=== PATIENT | male | born 1980 | race Caucasian/White ===

== ENCOUNTER 2022-10-11 12:37 | Emergency (ER) | payer OTHER, SELFPAY ==
[2022-10-11 12:44] VITALS: BP 149/68; PULSE 80; RESP 20; TEMP 36.8; O2SAT 98; BMI 46.5
--- NOTE | 2022-10-11 12:45 | ED_ITS ---
HPI - General Adult General Chief complaint: Abdominal Pain Stated complaint: lump in abd area Related Data Allergies Allergy/AdvReac Type Severity Reaction Status Date / Time No Known Allergies Allergy Verified 10/11/22 12:47 [facility] Social History Social History Advance Directives: No Advance Directives Information Provided: No Physical Exam ED Vital Signs: BMI result Body Mass Index 46.5 Course Course Course Narrative: This is an RME: Additional HPI, ROS, PE not included below will be deferred to primary provider. This is a [id number] presenting to the emergency department with complaints of ?hernia. He states that he has noticed a lump in his abdomen that increased in size last night when he was sitting up. No fevers, chills, nausea, vomiting, diarrhea. Able to eat and drink without difficulty. Hx of ap pendectomy, no other abd surgeries. Plan: further ER eval by primary provider. Reevaluation(s) Reevaluation #1: pt eloped prior to being fully evaluated in the main ER. Discharge Plan Discharge Clinical Impression: Abdominal lump Patient Disposition: Elopement Interventions: ED Discharge Assessment Last Done: 10/11/22 17:37 Discharge Date/Time: 10/11/22 17:37
== END 2022-10-11 17:37 | disposition left against medical advice (07) ==
PROVIDERS: Emergency Provider Emergency Medicine
DX: R19.00 Intra-abdominal and pelvic swelling, mass and lump, unspecified site (principal)
CPT/HCPCS: 99282

== ENCOUNTER 2023-08-07 10:22 | Outpatient (AMB) | payer OTHER, SELFPAY ==
--- NOTE | 2023-08-07 11:14 | A.OFFPC_ITS ---
Vital Signs 08/07/23 11:22 08/07/23 11:24 Height 5 ft 7.72 in Weight 303 lb 8 oz BMI 46.5 BP 159/83 H 136/78 Blood Pressure Location Lt brachial Lt radial Position Sitting Sitting Respiration 14 Pulse 85 Pulse Source Pulse Oximeter Temp 98.4 F Temp Source Temporal Artery Scan Pulse Oximetry (%) 97 Oxygen Delivery Method Room Air Intake Visit Reasons: Establish Care / ED-FU Intake Note: New patient visit Pouncing Machine Operator Required: No Allergies No Known Allergies Allergy (Verified 08/07/23 11:15) Tobacco use date assessed: 08/07/23 Dental Screening Dental Screen Date: 08/07/23 Did you have a dental visit in the last 12 months?: No Did you have a dental problem in the last 6 months where you did not have access to dental care?: No Was dental information given to patient?: Patient declined HPI Establish Care / ED-FU HPI Details Pt is a 42 y/o male who presents today to establish care. He does report obstructive sleep apnea and is on CPAP followed by sleep medicine. 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 She wanted him to be referred to Gastroenterology for his personal history of colon polyps and she wanted him to see a general surgeon for his rectus diastasis. He wants his testosterone checked. He went to [facility] ED 2.5 weeks for SOB and dizziness. He states he went there and was dx with a panic attack. He states that he started feeling like he could not take a good breath and got lightheaded and panicky when he was about to have a difficult conversation with his family members. He states that it caused a lot of stress for him and he thought than that he could be dying so he went to the ER and they did labs, an EKG, chest x-ray any states that they told him everything was fine but his liver function tests were a little bit elevated. He states that since the ER he has not made any significant diet changes but knows that he needs to make lifestyle changes because he is severely obese. 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 He has 2 children the ages 7 and 4 and often eats fast food with them. He states that he can follow a diet but has to be told to do this. CV: Blood pressure today in the office is 136/78. He denies any chest pain or shortness a breath. His initial blood pressure today upon arriving was 159/83. He states in the ER he thinks it was normal. Psych: States that he has recently felt a bit more stressed, anxious in some mild depression symptoms. He states some of it is related to his lifestyle and that he wants to change but he does not know that he wants to go on medication yet. Denies any SI/HI. States that his mother is on antianxiety medication and it does seem to make a difference for her. Family history: Maternal grandfather had colon cancer in his 80s. Mother had breast ca 59 y/o. Had a colonoscopy in 2014 and states that he had polyps and believes precancerous. 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 [facility] Medical History (Updated 08/07/23 @ 14:40 by Pao Mcfarlane PA-C) Anxiety with depression Colon polyps Elevated blood pressure reading in office with diagnosis of hypertension DWAYNE on CPAP Rectus diastasis GERD (gastroesophageal reflux disease) Surgical History (Updated 08/07/23 @ 11:22 by Jazzmine Clay CMA) Hx of appendectomy Family History (Updated 08/07/23 @ 11:21 by Jazzmine Clay CMA) Mother Breast cancer Maternal Grandmother Colon cancer Other Substance abuse Social History (Updated 08/07/23 @ 11:18 by Jazzmine Clay CMA) Housing: House Patient Tobacco Use Status: Current everyday Tobacco user Cigarette Packs Per Day: 5 Years Smoked: 5 e-Cigarette/Vaping Use: Never Used Substance Use Type: Amphetamines, Crack/Cocaine and Former Substance User service: No Current occupational status: employed 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 Current occupational exposures/hazards: No Cognitive needs: No Hearing needs: No Vision needs: No Questionnaire PHQ-9 Over the last 2 weeks, how often have you been bothered by any of the following problems? 1. Little interest or pleasure in doing things: more than half the days 2. Feeling down, depressed, or hopeless: several days 3. Trouble falling or staying asleep, or sleeping too much: more than half the days 4. Feeling tired or having little energy: nearly every day 5. Poor appetite or overeating: more than half the days 6. Feeling bad about yourself - or that you are a failure or have let yourself or your family down: more than half the days 7. Trouble concentrating on things, such as reading the newspaper or watching television: not at all 8. Moving or speaking so slowly that other people could have noticed. Or the opposite - being so fidgety or restless that you have been moving around a lot more than usual: several days 9. Thoughts that you would be better off or of hurting yourself in some wa y: not at all Total score: 13 Depression Screening Interpretation: Positive Depression Screening Done: Yes 48350 - PHQ-9 Billing: Yes Source: Developed by Drs. Marco Courtney, Rosemary Hughes, Lior Antonio and colleagues, with an educational ellen from [employer]. Thrive Questionnaire Date Thrive assessed: 08/07/23 I am a: Patient What is your living situation today?: I have a steady place to live Within the past 12 months, did the food you bought not last and you didn't have the money to get more?: Never true Within the past 12 months, did you worry whether your food would run out before you got money to buy more?: Never true Do you have trouble paying for medicines?: No Do you have trouble getting transportation to medical appointments?: No Do you have trouble paying your heating and electricity bill?: No Do you have trouble taking care of your child, family member or friend?: No Do you have trouble with day-to-day activities such as bathing, preparing meals, shopping, managing finances, etc.?: No Are you currently unemployed and looking for a job?: No Are you interested in more education?: No Please select the resources that you would like help with: None Currently or been in a relationship where the following occur: no concerns reported THRIVE Score: 0 AUDIT C Alcohol Use Questionnaire (AUDIT-C) 1. How often do you have a drink containing alcohol?: Never 3. How often do you have six or more drinks on one occasion?: Never Total Score: 0 LUCY-7 AMB Questionnaire LUCY-7 Date LUCY - 7 assessed: 08/07/23 Feeling nervous, anxious, or on edge: 1 = Several days Not being able to stop or control worryin = Not at all Worrying too much about different things: 0 = Not at all Trouble relaxin = Several days Being so restless that it is hard to sit still: 1 = Several days Becoming easily annoyed or irritable: 1 = Several days Feeling afraid as if something awful might happen: 1 = Several days Total LUCY-7 score (0-4 normal; 5-9 mild; 10-14 moderate; 15-21 severe): 5 Source: Developed by Drs. Marco Courtney, Rosemary Hughes, Lior Antonio and colleagues, with an educational ellen from [employer]. LUCY-7 Assessment Billing LUCY-7 Assessment Tool: LUCY-7 Assessment 91408 Physical exam (Primary Care) Vital Signs: Last Vital Signs Temp 98.4 F 08/07/23 11:22 Pulse 85 08/07/23 11:22 Resp 14 08/07/23 11:22 BP 136/78 08/07/23 11:24 Pulse Ox 97 08/07/23 11:22 Oxygen Delivery Method Room Air 08/07/23 11:22 BMI result Body Mass Index 46.5 Tobacco/Smoking Status: Tobacco use Status Tobacco use date assessed 08/07/23 08/07/23 11:27 Patient Tobacco Use Status Current everyday Tobacco 08/07/23 11:27 e-Cigarette/Vaping Use Never Used 08/07/23 11:27 PHQ-9: PHQ-9 Score PHQ-9: Total score 13 08/07/23 11:27 Depression Screening Interpretation: Positive Thrive Assessment: Date of Thrive Assessment Date Thrive assessed 08/07/23 08/07/23 11:27 Currently or been in a relationship where the following occur: no concerns reported Const Orientation/consciousness: patient oriented x3 HENMT Ears: hearing grossly normal bilaterally Neck Thyroid: Thyroid normal Lymphatic: no lymphadenopathy noted Resp Auscultation: clear to auscultation bilaterally Cardio Rate: regular rate Rhythm: regular rhythm Heart sounds: S1 normal heart sound present and S2 normal heart sound present GI Other: Rectus diastasis noted Inspection: Yes normal to inspection Palpation (GI): Soft to palpation and Other GI palpation findings present (nontender, no cva tenderness) Auscultation: normoactive bowel sounds Skin General skin exam: no rashes or lesions noted Neuro General: patient oriented x3, gait normal and no focal motor deficits Assessment and Plan Assessment & Plan (1) Rectus diastasis: Code(s): M62.08 - Separation of muscle (nontraumatic), other site Plan: Referral to General surgery (2) DWAYNE on CPAP: Code(s): G47.33 - Obstructive sleep apnea (adult) (pediatric) Plan: Continue management with sleep Medicine (3) Elevated LFTs: Code(s): R79.89 - Other specified abnormal findings of blood chemistry Plan: We will check labs today. (4) Elevated blood pressure reading in office with diagnosis of hypertension: Code(s): I10 - Essential (primary) hypertension Plan: We will return in 1 month for blood pressure recheck (5) Colon polyps: Code(s): K63.5 - Polyp of colon Plan: Referral to GI. (6) Anxiety with depression: Code(s): F41.8 - Other specified anxiety disorders Plan: wants to wait on treatment. no si/hi. will try increasing exercise and healthier habits and reassess at next visit. Orders: Orders Complete Blood Count Auto Diff Today G47.33 - Obstructive sleep apnea (adult) (pediatric), I10 - Essential (primary) hypertension, K63.5 - Polyp of colon, M62.08 - Separation of muscle (nontraumatic), other site, R79.89 - Other specified abnormal findings of blood chemistry TSH reflex Free T4 Today G47.33 - Obstructive sleep apnea (adult) (pediatric), I10 - Essential (primary) hypertension, K63.5 - Polyp of colon, M62.08 - Separation of muscle (nontraumatic), other site, R79.89 - Other specified abnormal findings of blood chemistry Comprehensive [place]. Panel Fast Today G47.33 - Obstructive sleep apnea (adult) (pediatric), I10 - Essential (primary) hypertension, K63.5 - Polyp of colon, M62.08 - Separation of muscle (nontraumatic), other site, R79.89 - Other specified abnormal findings of blood chemistry Lipid Panel Today G47.33 - Obstructive sleep apnea (adult) (pediatric), I10 - Essential (primary) hypertension, K63.5 - Polyp of colon, M62.08 - Separation of muscle (nontraumatic), other site, R79.89 - Other specified abnormal findings of blood chemistry Testosterone, Free/Total Today G47.33 - Obstructive sleep apnea (adult) (pediatric), I10 - Essential (primary) hypertension, K63.5 - Polyp of colon, M62.08 - Separation of muscle (nontraumatic), other site, R79.89 - Other specified abnormal findings of blood chemistry Referrals Gastroenterology Referral K63.5 - Polyp of colon General Surgery Referral M62.08 - Separation of muscle (nontraumatic), other site Coding Level of Care Code New Pt Level 4 (03240) Complex EM visit Add On G2211 Diagnoses Rectus diastasis M62.08 DWAYNE on CPAP G47.33 Elevated LFTs R79.89 Elevated blood pressure reading in office with diagnosis of hypertension I10 Colon polyps K63.5 Anxiety with depression F41.8 Additional Codes LUCY-7 Assessment Billing - LUCY-7 Assessment Tool: LUCY-7 Assessment [id number] ([id number])
[2023-08-07 11:22] VITALS: BP 159/83; PULSE 85; RESP 14; TEMP 36.9; O2SAT 97; BMI 46.5
[2023-08-07 11:24] VITALS: BP 136/78
== END 2023-08-07 12:16 | disposition home or self-care (01) ==
PROVIDERS: Visit Provider Physician Assistant
DX: M62.08 Separation of muscle (nontraumatic), other site (principal); G47.33 Obstructive sleep apnea (adult) (pediatric); R79.89 Other specified abnormal findings of blood chemistry; I10 Essential (primary) hypertension; K63.5 Polyp of colon; F41.8 Other specified anxiety disorders
CPT/HCPCS: 99204; G2211

== ENCOUNTER 2023-08-24 07:38 | Outpatient (REF) | payer OTHER, SELFPAY ==
[2023-08-24 07:57] LABS: MANUAL DIFF FLAG NO
[2023-08-24 08:30] LABS: Basophils Absolute Auto 0.1 X10*3/uL (0.0-0.2); Eosinophils Absolute Auto 0.3 X10*3/uL (0.0-0.4); Eosinophils Percent Auto 4.2 % (0-4); Hematocrit 43.1 % (42.0-52.0); Hemoglobin 15.1 g/dl (14.0-18.0); Imm Gran Abs Auto 0.03 X10*3/uL (0.00-0.03); Imm Gran Pct Auto 0.5 % (0.0-0.4); Lymphocytes Absolute Auto 1.7 X10*3/uL (1.2-4.9); Lymphocytes Percent Auto 28.1 % (20-40); Mean Corpuscular Volume 85.7 fL (80.0-98.0); Mean Platelet Volume 9.5 fL (9.4-12.4); Monocytes Absolute Auto 0.6 X10*3/uL (0.1-1.2); Monocytes Percent Auto 9.5 % (2-11); Neutrophils Absolute Auto 3.5 x10*3/uL (2.0-8.3); Neutrophils Percent Auto 56.7 % (45-73); Platelet Count 258 X10*3/uL (160-400); Red Blood Count 5.03 X10*6/uL (4.60-5.80); Red Cell Distribution Width 12.2 % (11.0-16.0); White Blood Count 6.1 X10*3/uL (4.8-10.8)
[2023-08-24 09:20] LABS: Alanine Aminotransferase 70 U/L (0-40); Albumin Level 4.4 g/dL (3.5-5.0); Alkaline Phosphatase 60 U/L (39-117); Anion Gap 13 (12-20); Aspartate Amino Transferase 39 U/L (5-37); Bilirubin Total 0.5 mg/dL (0.0-1.0); Blood Urea Nitrogen 15 mg/dL (9-16); Calcium 9.5 mg/dL (8.4-10.2); Carbon Dioxide 23 mmol/L (22-29); Chloride 108 mmol/L (96-108); Cholesterol 234 mg/dL (<200); Estimated Glomerular Filt Rate > 60; Glucose Fasting 107 mg/dL (60-99); HDL Cholesterol 30 mg/dL (>40); LDL Cholesterol Calculated 165 mg/dL (<100); Potassium 3.8 mmol/L (3.3-5.1); Sodium 140 mmol/L (135-145); Total Protein 7.5 g/dL (6.5-8.0); Triglycerides 196 mg/dL (<150)
[2023-08-24 09:28] LABS: TSH reflex Free T4 1.46 uIU/mL (0.32-4.0)
[2023-08-29 14:14] LABS: Testosterone, Free 63.3 pg/mL (35.0-155.0); Testosterone, Total 391 ng/dL (250-1100)
== END 2023-08-24 07:39 | disposition home or self-care (01) ==
LOC: HO.LAB 07:38
PROVIDERS: PCP Physician Assistant; Visit Provider Physician Assistant
DX: K63.5 Polyp of colon (principal); I10 Essential (primary) hypertension; R79.89 Other specified abnormal findings of blood chemistry; G47.33 Obstructive sleep apnea (adult) (pediatric); M62.08 Separation of muscle (nontraumatic), other site
CPT/HCPCS: 36415; 80053; 80061; 84402; 84403; 84443; 85025

== ENCOUNTER 2023-09-07 08:25 | Outpatient (REF) | payer OTHER, SELFPAY ==
[2023-09-07 09:37] LABS: Estimated Average Glucose 111 mg/dL; Hemoglobin A1C 145.3767 umol/L; Hemoglobin A1c % 5.5 % (<6.0)
[2023-09-07 10:26] LABS: Cholesterol 218 mg/dL (<200); HDL Cholesterol 34 mg/dL (>40); LDL Cholesterol Calculated 143 mg/dL (<100); Triglycerides 207 mg/dL (<150)
[2023-09-07 10:50] LABS: Gamma Glutamyl Transpeptidase 64 U/L (11-51)
[2023-09-09 08:23] LABS: Hepatitis A Antibody IgG Nonreactive (Nonreactive)
[2023-09-09 08:34] LABS: ~HepC Num1 0.88 S/CO (0.00-0.79); ~Hepatitis B Surface Antibody NONREACTIVE (Nonreactive)
[2023-09-09 10:57] LABS: ~HepC Num2 0.92; ~HepC Num3 0.94; ~Hepatitis C Antibody GRAYZONE (Nonreactive)
== END 2023-09-07 08:26 | disposition home or self-care (01) ==
LOC: HO.LAB 08:25
PROVIDERS: PCP Physician Assistant; Visit Provider Physician Assistant
DX: R79.89 Other specified abnormal findings of blood chemistry (principal); R73.01 Impaired fasting glucose; E78.5 Hyperlipidemia, unspecified
CPT/HCPCS: 36415; 80061; 82977; 83036; 86706; 86708; 86803

== ENCOUNTER 2023-09-20 08:12 | Outpatient (REF) | payer OTHER, SELFPAY ==
--- NOTE | ~2023-09-20 | US_ITS ---
EXAMINATION: US ABDOMEN LIMITED CLINICAL INFORMATION: Other specified abnormal findings of blood chemistry. COMPARISON: None available. TECHNIQUE: Real-time imaging of the right upper quadrant abdominal viscera. Limited visualization due to bowel gas and body habitus. FINDINGS: PANCREAS: Limited visualization of pancreatic tail and head. Imaged portion of pancreatic body is unremarkable. LIVER: Increased hepatic parenchymal heterogeneity and echogenicity could be associated with hepatocellular disease/hepatic steatosis and substantially limits visualization. Correlation with liver function tests and clinical exam recommended to determine further management. 5.9 x 3.5 x 5.0 cm hypoechoic area with irregular margins in the inferior left hepatic lobe. GALLBLADDER: No gallstones. No gallbladder wall thickening. COMMON BILE DUCT: Normal in caliber measuring 0.27 cm in diameter. RIGHT KIDNEY: No hydronephrosis. No renal calculi. Limited visualization. 3.4 cm lower pole cyst with benign features. There is no indication for follow-up imaging. The kidney measures 13.0 cm in maximum dimension. FREE FLUID: None. US/US abdomen limited IMPRESSION: 1. Increased hepatic parenchymal heterogeneity and echogenicity could be associated with hepatocellular disease/hepatic steatosis and substantially limits visualization. Correlation with liver function tests and clinical exam recommended to determine further management. 2. A 5.9 cm hypoechoic area with irregular margins in the inferior left hepatic lobe of uncertain etiology, possibly representing an area of focal sparing within a fatty liver versus a hepatic mass. MRI with gadolinium recommended for further evaluation. This study was presented to id September for interpretation. PSA staff will provide results to referring provider at this time.
== END 2023-09-20 08:13 | disposition home or self-care (01) ==
LOC: HO.HMGCX 08:12
PROVIDERS: PCP Physician Assistant; Visit Provider Physician Assistant
DX: R79.89 Other specified abnormal findings of blood chemistry (principal); R73.01 Impaired fasting glucose; E78.5 Hyperlipidemia, unspecified
CPT/HCPCS: 76705

== ENCOUNTER 2023-10-23 08:06 | Outpatient (AMB) | payer OTHER, SELFPAY ==
--- NOTE | 2023-10-23 08:24 | A.OFFPC_ITS ---
Vital Signs 10/23/23 08:25 Height 5 ft 7.72 in Weight 300 lb 4 oz BMI 46.0 BP 130/86 Blood Pressure Location Lt brachial Position Sitting Respiration 16 Pulse 69 Pulse Source Pulse Oximeter Pulse Oximetry (%) 99 Oxygen Delivery Method Room Air Intake Visit Reasons: bp follow up Intake Note: Follow up htn Allergies No Known Allergies Allergy (Verified 10/23/23 08:24) Tobacco use date assessed: 08/07/23 Dental Screening Dental Screen Date: 08/07/23 HPI bp follow up HPI Details Patient is a 43-year-old male who presents today for a follow up. He is relatively new here. At his last visit his blood pressure was elevated. CV: Blood pressure today in the office is 130/86. No chest pain, shortness on breath or dizziness. He would like to see a supervisor bottle house cleaners about losing weight because he really does not want to take any medications. His last cholesterol was elevated. Again he does not start a statin but would like to work on diet changes. GI: Recently had an ultrasound as his liver enzymes were elevated and it was a bit abnormal so he did have an MRI. The MRI was done last week and consistent with severe fatty liver. He does have a referral in to GI. He states he is aware that severe fatty liver can progress to cirrhosis. He does think he can get better with some lifestyle modifications. He denies really drinking alcohol. His labs did show hep C in the turpin zone and he did not yet that was repeated. He states that he will do this today. Family history: Maternal grandfather had colon cancer in his 80s. Mother had breast ca 59 y/o. Had a colonoscopy in 2015 and states that he had polyps and believes precancerous. 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 [facility] Medical History (Updated 10/23/23 @ 10:12 by Pao Mcfarlane PA-C) Anxiety with depression Colon polyps Elevated blood pressure reading in office with diagnosis of hypertension DWAYNE on CPAP Rectus diastasis GERD (gastroesophageal reflux disease) Surgical History (Updated 08/07/23 @ 11:22 by Jazzmine Clay CMA) Hx of appendectomy Family History (Updated 08/07/23 @ 11:21 by Jazzmine Clay CMA) Mother Breast cancer Maternal Grandmother Colon cancer Other Substance abuse Social History (Updated 08/07/23 @ 11:18 by Jazzmine Clay CMA) Housing: House Patient Tobacco Use Status: Current everyday Tobacco user Cigarette Packs Per Day: 5 Years Smoked: 5 e-Cigarette/Vaping Use: Never Used Substance Use Type: Amphetamines, Crack/Cocaine and Former Substance User service: No Current occupational status: employed 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 Current occupational exposures/hazards: No Cognitive needs: No Hearing needs: No Vision needs: No Questionnaire Thrive Questionnaire Date Thrive assessed: 08/07/23 LUCY-7 AMB Questionnaire LUCY-7 Date LUCY - 7 assessed: 08/07/23 Source: Developed by Drs. Marco Courtney, Rosemary Hughes, Lior Antonio and colleagues, with an educational ellen from [employer]. Physical exam (Primary Care) Vital Signs: Last Vital Signs Pulse 69 10/23/23 08:25 Resp 16 10/23/23 08:25 BP 130/86 10/23/23 08:25 Pulse Ox 99 10/23/23 08:25 Oxygen Delivery Method Room Air 10/23/23 08:25 BMI result Body Mass Index 46.0 BMI Assessment/Plan discussion: High (Referral to dietitian. Discussed Wegovy) BMI High, discussed plan: lifestyle, weight reduction, dietary, physical activity and alcohol moderation Tobacco/Smoking Status: Tobacco use Status Tobacco use date assessed 08/07/23 10/23/23 08:29 Patient Tobacco Use Status Current everyday Tobacco 10/23/23 08:29 e-Cigarette/Vaping Use Never Used 10/23/23 08:29 Thrive Assessment: Date of Thrive Assessment Date Thrive assessed 08/07/23 10/23/23 08:29 Const Orientation/consciousness: patient oriented x3 HENMT Ears: hearing grossly normal bilaterally Neck Thyroid: Thyroid normal Lymphatic: no lymphadenopathy noted Resp Auscultation: clear to auscultation bilaterally Cardio Rate: regular rate Rhythm: regular rhythm Heart sounds: S1 normal heart sound present and S2 normal heart sound present GI Inspection: Yes normal to inspection Palpation (GI): Soft to palpation and Other GI palpation findings present (nontender, no cva tenderness) Auscultation: normoactive bowel sounds Rectal Exam - Male: Yes deferred Skin General skin exam: no rashes or lesions noted Neuro General: patient oriented x3, gait normal and no focal motor deficits Results Reviewed Results Reviewed: Laboratory Tests 08/24/23 09/07/23 07:55 08:35 Estimat Average Glucose 111 Hemoglobin A1c % 5.5 GGT 64 H AST 39 H ALT 70 H Alkaline Phosphatase 60 Hepatitis A IgG Ab Nonreactive Hep Bs Antibody NONREACTIVE Hepatitis C Ab (EIA) GRAYZONE 1. Increased hepatic parenchymal heterogeneity and echogenicity could be associated with hepatocellular disease/hepatic steatosis and substantially limits visualization. Correlation with liver function tests and clinical exam recommended to determine further management. 2. A 5.9 cm hypoechoic area with irregular margins in the inferior left hepatic lobe of uncertain etiology, possibly representing an area of focal sparing within a fatty liver versus a hepatic mass. MRI with gadolinium recommended for further evaluation. This study was presented to me September for interpretation. PSA staff will provide results to referring provider at this time. Assessment and Plan Assessment & Plan (1) IFG (impaired fasting glucose): Code(s): R73.01 - Impaired fasting glucose Plan: We discussed the importance of reducing his carbohydrate and sugar intake. (2) Dyslipidemia: Code(s): E78.5 - Hyperlipidemia, unspecified Plan: As above. We discussed a low-fat diet. I have referred him to a supervisor bottle house cleaners. (3) Severe obesity (BMI >= 40): Code(s): E66.01 - Morbid (severe) obesity due to excess calories Plan: Discussed possibly starting Wegovy if he does not notice weight loss with diet and exercise. (4) Fatty liver: Code(s): K76.0 - Fatty (change of) liver, not elsewhere classified Plan: severe- has been referred to gi complete labs today f/u 6 months or sooner prn Orders: Orders Liver Panel 4 Months E66.01 - Morbid (severe) obesity due to excess calories, E78.5 - Hyperlipidemia, unspecified, K76.0 - Fatty (change of) liver, not elsewhere classified, R79.89 - Other specified abnormal findings of blood chemistry Lipid Panel 4 Months E66.01 - Morbid (severe) obesity due to excess calories, E78.5 - Hyperlipidemia, unspecified, K76.0 - Fatty (change of) liver, not elsewhere classified Hemoglobin A1c 4 Months E66.01 - Morbid (severe) obesity due to excess calories, E78.5 - Hyperlipidemia, unspecified, K76.0 - Fatty (change of) liver, not elsewhere classified Referrals Pipe Bowl Paint Trimmer Nutrition Referral E66.01 - Morbid (severe) obesity due to excess calories, E78.5 - Hyperlipidemia, unspecified, R03.0 - Elevated blood-pressure reading, without diagnosis of hypertension, R73.01 - Impaired fasting glucose Coding Level of Care Code Est Pt Level 4 (32940) Complex EM visit Add On G2211 Diagnoses IFG (impaired fasting glucose) R73.01 Dyslipidemia E78.5 Severe obesity (BMI >= 40) E66.01 Fatty liver K76.0
[2023-10-23 08:25] VITALS: BP 130/86; PULSE 69; RESP 16; O2SAT 99; BMI 46.0
== END 2023-10-23 08:51 | disposition home or self-care (01) ==
PROVIDERS: PCP Physician Assistant; Visit Provider Physician Assistant
DX: R73.01 Impaired fasting glucose (principal); E66.01 Morbid (severe) obesity due to excess calories; Z68.42 Body mass index [BMI] 45.0-49.9, adult; E78.5 Hyperlipidemia, unspecified; K76.0 Fatty (change of) liver, not elsewhere classified
CPT/HCPCS: 99214

== ENCOUNTER 2023-10-23 08:55 | Outpatient (REF) | payer OTHER, SELFPAY ==
[2023-10-23 11:59] LABS: ~HepC Num1 1.25 S/CO (0.00-0.79); ~Hepatitis C Antibody Reactive (Nonreactive)
[2023-10-25 08:13] LABS: HCV Log PCR <1.18 NOT DETECTED Log IU/mL (NOT DETECTED); HepC Viral Load <15 NOT DETECTED IU/mL (NOT DETECTED)
== END 2023-10-23 08:56 | disposition home or self-care (01) ==
LOC: HO.WFDLDS 08:55
PROVIDERS: Visit Provider Physician Assistant
DX: R94.5 Abnormal results of liver function studies (principal)
CPT/HCPCS: 36415; 86803; 87522

== ENCOUNTER 2023-11-01 08:51 | Outpatient (AMB) | payer OTHER, SELFPAY ==
--- NOTE | 2023-11-01 08:52 | MHC.OFFVIS ---
Vital Signs 11/01/23 08:53 Height 5 ft 8 in Weight 306 lb 14.135 oz BMI 46.7 BP 146/74 H Blood Pressure Location Rt brachial Position Sitting Pulse 80 Pulse Source Pulse Oximeter Pulse Oximetry (%) 97 Oxygen Delivery Method Room Air Intake Visit Reasons: Hx of polyp Intake Note: Albert presents in office today for a scheduled colo s/p scrn. CC; Pt has prior hx of colo (2019). Pt reports having B/L UQ. Pt reports that this has been a fairly constant pain for the last couple years per pt. Pt states that he does have swelling in the location of the pain and reports that it seems worse when supine or semi otero. Chemical Unit Operator Required: No Accompanied by: Self / Same As Patient Allergies No Known Allergies Allergy (Verified 11/01/23 08:53) HPI HPI Hx of polyp: Details: 43-year-old male with past medical history of dyslipidemia, history of colon polyps, transaminitis, DWAYNE, diastasis recti, positive hep C antibody is here today for initial consultation. Patient is here to discuss colonoscopy and elevated liver enzymes. Patient reports colonoscopy in [place] about 5 years ago or so with polyps. Patient unsure if he was told to return in 5 years, patient has PCP is sending for recall. Patient reports maternal grandfather diagnosed with colorectal cancer. Patient denies melena, hematochezia. Reports that he gained weight during COVID and he has not tried to lose his weight. Patient prior to COVID was in the gym training himself and others. He reports that he was not a great shape. Recently patient had hep C antibody positive with negative viral load. Patient reports that he never was treated before for hep C. Patient admits to using drugs, never heroin however that was 15 years ago. Patient reports that he does not drink alcohol smoked cigarettes when he was young. Currently patient is a nonsmoker. Elevated liver enzymes prompt PCP to do ultrasound that showed density, hypoechoic area was sent for MRI that showed fatty sparing. Diagnosed with diastasis recti, occasional pain when he is trying to sit up from lying position. Patient saw general surgeon and was told that is cosmetic surgery as this is not a hernia. Patient does not have abdominal binder. 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 Denies any issues with anesthesia in the past. History of sleep apnea using CPAP at night. Patient is not on any anticoagulation medication. Denies any cardiac or respiratory symptoms. [facility] Medical History Biceps tendon tear (~2021) Anxiety with depression Colon polyps Elevated blood pressure reading in office with diagnosis of hypertension DWAYNE on CPAP Rectus diastasis GERD (gastroesophageal reflux disease) Surgical History Hx of appendectomy Family History (Updated 11/01/23 @ 09:32 by GHISLAINE PulliamROHAN) Mother Breast cancer Maternal Grandfather Colon cancer Other Substance abuse Social History (Updated 11/01/23 @ 09:34 by DMITRIY Pulliam) Housing: House Patient Tobacco Use Status: Former Tobacco user Years Smoked: 15 e-Cigarette/Vaping Use: Never Used Substance Use Type: Amphetamines, Crack/Cocaine, Former Substance User and Marijuana service: No Current occupational status: employed 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 Current occupational exposures/hazards: No Cognitive needs: No Hearing needs: No Vision needs: No Review of Systems Const Denies weight gain and Denies weight loss ENT Reports no additional complaints, Denies dysphagia and Denies odynophagia Card Reports no additional complaints Resp Reports no additional complaints GI Reports abdominal pain (Upper ), Denies belching, Denies melena, Denies bloating, Denies change in bowel habits, Denies dysphagia, Denies excessive flatus, Denies dyspepsia, Denies heartburn, Denies diarrhea, Denies loose stools, Denies nausea, Denies odynophagia and Denies vomiting Reports no additional complaints Musc Reports no additional complaints Neuro Reports no additional complaints Psych Reports no additional complaints Endo Reports no additional complaints Physical Exam Vital Signs: Last Vital Signs Pulse 80 11/01/23 08:53 BP 146/74 H 11/01/23 08:53 Pulse Ox 97 11/01/23 08:53 Oxygen Delivery Method Room Air 11/01/23 08:53 BMI result Body Mass Index 46.7 Const General: healthy appearing and no acute distress Nutritional Appearance: obese Orientation/consciousness: patient oriented x3 Resp Effort & Inspection: normal respiratory effort, able to speak in complete sentences, no tracheal deviation and symmetric chest movement Auscultation: clear to auscultation bilaterally Cardio Rate: regular rate GI Inspection: No distended, Yes obesity and Yes visible herniation (Diastasis recti) Palpation (GI): Soft to palpation, not firm, nontender and No hepatosplenomegaly present Auscultation: normal bowel sounds General: Yes no CVA tenderness Back/Spine/Pelvis Back: no CVA tenderness Skin General skin exam: elasticity normal, turgor normal and dry skin Neuro General: patient oriented x3 Psych Appearance: grossly normal Mental Status: mental status grossly normal Results Reviewed Results Reviewed: Laboratory Tests 09/07/23 10/23/23 08:35 09:10 Hepatitis A IgG Ab Nonreactive Hep Bs Antibody NONREACTIVE Hepatitis C Ab (EIA) Reactive H Hep C Viral Load <15 NOT DETECTED Hep C Viral Load Log <1.18 NOT DETECTED ABDOMINAL ULTRASOUND FINDINGS: PANCREAS: Limited visualization of pancreatic tail and head. Imaged portion of pancreatic body is unremarkable. LIVER: Increased hepatic parenchymal heterogeneity and echogenicity could be associated with hepatocellular disease/hepatic steatosis and substantially limits visualization. Correlation with liver function tests and clinical exam recommended to determine further management. 5.9 x 3.5 x 5.0 cm hypoechoic area with irregular margins in the inferior left hepatic lobe. GALLBLADDER: No gallstones. No gallbladder wall thickening. COMMON BILE DUCT: Normal in caliber measuring 0.27 cm in diameter. RIGHT KIDNEY: No hydronephrosis. No renal calculi. Limited visualization. 3.4 cm lower pole cyst with benign features. There is no indication for follow-up imaging. The kidney measures 13.0 cm in maximum dimension. FREE FLUID: None. US/US abdomen limited IMPRESSION: 1. Increased hepatic parenchymal heterogeneity and echogenicity could be associated with hepatocellular disease/hepatic steatosis and substantially limits visualization. Correlation with liver function tests and clinical exam recommended to determine further management. 2. A 5.9 cm hypoechoic area with irregular margins in the inferior left hepatic lobe of uncertain etiology, possibly representing an area of focal sparing within a fatty liver versus a hepatic mass. MRI with gadolinium recommended for further evaluation. Assessment & Plan Assessment & Plan (1) Hepatitis C antibody positive in blood: Code(s): R76.8 - Other specified abnormal immunological findings in serum Category: Medical (2) Fatty liver: Code(s): K76.0 - Fatty (change of) liver, not elsewhere classified Category: Medical (3) Liver mass, left lobe: Code(s): R16.0 - Hepatomegaly, not elsewhere classified Category: Medical (4) Colon polyps: Code(s): K63.5 - Polyp of colon Category: Medical Qualifiers: Colon location: unspecified part of colon Colon polyp type: adenomatous Qualified Code(s): D12.6 - Benign neoplasm of colon, unspecified (5) Screen for colon cancer: Code(s): Z12.11 - Encounter for screening for malignant neoplasm of colon Plan Patient denies any GI, cardiac or respiratory symptoms.? Denies any issues with anesthesia in the past.? History of sleep apnea uses CPAP every night No history infectious diseases in the past or present.? Not on any anticoagulation therapy.? Family history of CRC.? Patient denies melena, hematochezia, unintentional weight loss or ribbon like stools.? Nonalcoholic fatty liver most likely related to patient gaining a lot of weight since COVGA. Patient does admit to be eating food that is unhealthy. Has not gone to exercise since COVGA. Patient states that he started changing his diet and will be going to the gym regularly. However really will rule out autoimmune disorders, ultrasound with elastography, will check liver fibrosis panel. Discussed at length the pre-procedure,? prep, diet & medications as well as what to expect prior, during and after the procedure.?? Stressed the importance of good bowel prep.? Recommended the use of Vaseline or Calmoseptine OTC & baby wipes with bowel movements to promote comfort.? ?Patient verbalizes understanding and agrees to plan of care.? He was given the opportunity to ask questions and all questions answered.? We will see him after the procedure.? Orders: Orders Alpha Fetoprotein Today R79.89 - Other specified abnormal findings of blood chemistry Ceruloplasmin Today R79.89 - Other specified abnormal findings of blood chemistry IRON PROFILE Today D64.9 - Anemia, unspecified Mitochondrial Antibody Today R79.89 - Other specified abnormal findings of blood chemistry US abdomen melgar w elastography Today R74.01 - Elevation of levels of liver transaminase levels Smooth Muscle Antibody Today R79.89 - Other specified abnormal findings of blood chemistry Ferritin Today R74.8 - Abnormal levels of other serum enzymes Prothrombin Time INR Today R74.8 - Abnormal levels of other serum enzymes Liver Fibrosis Pnl Today R74.8 - Abnormal levels of other serum enzymes Medications: New bisacodyl (Dulcolax (bisacodyl)) take 4 tabs at noon the day before your colonoscopy 20 mg (4 x 5 mg) PO ONCE 1 day 4 tabs 0RF Z12.11 - Encounter for screening for malignant neoplasm of colon polyethylene glycol 3350 (Miralax) As directed by gastroenterology department at [facility] 238 grams PO ONCE 238 grams 0RF Z12.11 - Encounter for screening for malignant neoplasm of colon Coding Level of Care Code New Pt Level 4 (25864) Diagnoses Hepatitis C antibody positive in blood R76.8 Fatty liver K76.0 Liver mass, left lobe R16.0 Adenomatous polyp of colon, unspecified part of colon D12.6 Colon location: unspecified part of colon Colon polyp type: adenomatous Screen for colon cancer Z12.11 Time Spent (min) 45 Comment 30 minutes spent with patient and additional 15 minutes spent reviewing his records
[2023-11-01 08:53] VITALS: BP 146/74; PULSE 80; O2SAT 97; BMI 46.7
== END 2023-11-01 10:43 | disposition home or self-care (01) ==
PROVIDERS: Visit Provider Nurse Practitioner Family
DX: R76.8 Other specified abnormal immunological findings in serum (principal); K76.0 Fatty (change of) liver, not elsewhere classified; R16.0 Hepatomegaly, not elsewhere classified; D12.6 Benign neoplasm of colon, unspecified; Z12.11 Encounter for screening for malignant neoplasm of colon
CPT/HCPCS: 99204

== ENCOUNTER → 2023-11-01 08:51 | Outpatient (BNVA) | payer OTHER, SELFPAY | PROVIDERS: Visit Provider Nurse Practitioner Family ==

== ENCOUNTER 2023-11-13 07:40 | Outpatient (REF) | payer OTHER, SELFPAY ==
--- NOTE | ~2023-11-13 | US_ITS ---
EXAMINATION: US ABDOMEN LIMITED WITH LIVER ELASTOGRAPHY CLINICAL INFORMATION: Elevated transaminase. COMPARISON: None available. TECHNIQUE: Real-time imaging of the abdominal viscera. Noninvasive ultrasound liver fibrosis assessment is performed using Kaleb ElastPQ point quantification shear wave elastography (pSWE) with a 5 MHz transducer. Multiple elastography samples are obtained. FINDINGS: PANCREAS: The visualized pancreatic head and body are normal in appearance. The remainder of the pancreas is obscured from visualization by the overlying bowel gas. LIVER: The liver is enlarged with heterogeneously increased echogenicity. No focal lesion or intrahepatic biliary duct dilatation. The right lobe measures 18.4 cm in length. The left lobe measures 11.7 cm in length. Shear wave elastography provides a median stiffness of 1.16 m/s (reference: normal median stiffness is 0.81 - 1.22 m/s). The IQR/median stiffness to assess sampling precision is 0.18 (reference: optimal IQR/median stiffness is under 0.3). GALLBLADDER: The gallbladder is physiologically distended without evidence of stones, sludge, polyps, wall thickening or pericholecystic fluid. COMMON BILE DUCT: Normal in caliber measuring 0.4 cm in diameter. RIGHT KIDNEY: No hydronephrosis. No renal calculi. The kidney measures 11.6 cm in maximum dimension. A benign lower pole 3.4 cm Bosniak class I renal cyst is noted which requires no additional imaging or follow up. No solid renal masses are seen. FREE FLUID: None. US/US abdomen melgar w elastography IMPRESSION: 1. Enlarged fatty liver. 2. Elastography: Liver elastography measurements are within normal (METAVIR Stage F0). Electronically signed by: Conor Carter MD 11/22/2023 01:11 AM EDT
== END 2023-11-13 07:41 | disposition home or self-care (01) ==
LOC: HO.US 07:40
PROVIDERS: PCP Physician Assistant; Visit Provider Nurse Practitioner Family
DX: R74.01 Elevation of levels of liver transaminase levels (principal)
CPT/HCPCS: 76705; 76981

== ENCOUNTER 2024-02-25 07:13 | Day surgery (SDC) | payer OTHER, SELFPAY ==
[2024-02-24 05:18] VITALS: BMI 47.0
--- NOTE | 2024-02-24 09:21 | P.CONAN_ITS ---
Documented by User: Bonnie Perera NP 02/24/24 09:26 HPI - Anesthesia Eval Consult details Narrative: 43yo M for Upper Endoscopy and Colonoscopy Hx polysub >15years ago [facility] Active Problems Active Problems: All Active Problems Hepatitis C antibody positive in blood (Acute) Fatty liver (Acute) Severe obesity (BMI >= 40) (Acute) Prehypertension (Acute) Liver mass, left lobe (Acute) Dyslipidemia (Acute) IFG (impaired fasting glucose) (Acute) Anxiety with depression (Acute) Colon polyps (Acute) Elevated blood pressure reading in office with diagnosis of hypertension (Acute) Elevated LFTs (Acute) DWAYNE on CPAP (Acute) Rectus diastasis (Acute) Past Medical History Medical History Hepatitis C antibody positive in blood Biceps tendon tear (~2021) Anxiety with depression Colon polyps Elevated blood pressure reading in office with diagnosis of hypertension DWAYNE on CPAP Rectus diastasis GERD (gastroesophageal reflux disease) Family History Family History (Updated 11/01/23 @ 09:32 by WAGNER Pulliam) Mother Breast cancer Maternal Grandfather Colon cancer Other Substance abuse Surgical History Surgical History (Updated 02/25/24 @ 07:23 by Mae Lee RN) History of surgical procedure on maxillary sinus History of surgery on arm Hx of shoulder surgery History of esophagogastroduodenoscopy (EGD) H/O colonoscopy Hx of appendectomy Social History Social History (Updated 11/01/23 @ 09:34 by DMITRIY Pulliam) Housing: House Patient Tobacco Use Status: Current someday Tobacco user Years Smoked: 15 e-Cigarette/Vaping Use: Never Used Substance Use Type: Amphetamines, Crack/Cocaine, Former Substance User and Marijuana Substance Use Type Other:: quit 2007 Are you DNR?: No Advance Directives: No Advance Directives Information Provided: Yes Recently lost weight without trying: No service: No Current occupational status: employed 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 Current occupational exposures/hazards: No Cognitive needs: No Hearing needs: No Vision needs: No Meds Allergies Allergy/AdvReac Type Severity Reaction Status Date / Time No Known Allergies Allergy Verified 02/25/24 07:23 Home Medications ?Medication ?Instructions ?Recorded ?Confirmed ?Last Taken ?Type ibuprofen 200 mg tablet 200 mg PO Q6H PRN Pain 02/25/24 02/25/24 Unknown History Exam Height,Weight and Vital Signs: Height 5 ft 7 in Weight 136.078 kg Assessment and Plan Assessment Anesthesia Assessment: Chart Reviewed Documented by User: Toi Marques MD 02/25/24 08:08 [facility] Past Medical History Medical History Hepatitis C antibody positive in blood Biceps tendon tear (~2021) Anxiety with depression Colon polyps Elevated blood pressure reading in office with diagnosis of hypertension DWAYNE on CPAP Rectus diastasis GERD (gastroesophageal reflux disease) Family History Family History (Updated 11/01/23 @ 09:32 by DMITRIY Pulliam) Mother Breast cancer Maternal Grandfather Colon cancer Other Substance abuse Family history of problems with anesthesia: No Surgical History Surgical History (Updated 02/25/24 @ 07:23 by Mae Lee RN) History of surgical procedure on maxillary sinus History of surgery on arm Hx of shoulder surgery History of esophagogastroduodenoscopy (EGD) H/O colonoscopy Hx of appendectomy History of Problems with Anesthesia: No Social History Social History (Updated 11/01/23 @ 09:34 by DMITRIY Pulliam) Housing: House Patient Tobacco Use Status: Current someday Tobacco user Years Smoked: 15 e-Cigarette/Vaping Use: Never Used Substance Use Type: Amphetamines, Crack/Cocaine, Former Substance User and Marijuana Substance Use Type Other:: quit 2007 Are you DNR?: No Advance Directives: No Advance Directives Information Provided: Yes Recently lost weight without trying: No service: No Current occupational status: employed 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 Current occupational exposures/hazards: No Cognitive needs: No Hearing needs: No Vision needs: No Meds Allergies Allergy/AdvReac Type Severity Reaction Status Date / Time No Known Allergies Allergy Verified 02/25/24 07:23 Home Medications ?Medication ?Instructions ?Recorded ?Confirmed ?Last Taken ?Type ibuprofen 200 mg tablet 200 mg PO Q6H PRN Pain 02/25/24 02/25/24 Unknown History Exam Airway Mallampati Class: III TM Dist: >3cm Neck ROM: Full Assessment and Plan Assessment Anesthesia Assessment: Anesthesia Plan Discussed Final Anesthetic Review Family History of Problems with Anesthesia: No History of Problems with Anesthesia: No NPO: Yes ASA Class: III Final Preanesthetic Review: No Changes in Pt Med Stat, Meds/Allgs Chart Reviewed, Consent Obtained/Reviewed and Anes Risks/Benef Reviewed Patient Risk: Intermediate Procedure Risk: Low Anesthetic Plan Anesthetic Plan: TIVA Disposition: Standard PACU
--- NOTE | 2024-02-25 06:43 | MHC.SHP ---
Pre-Procedural Eval Section A - 24 Hr Update-Section A only Date of Service: 02/25/24 Section B - Complete if H&P > 30 days Chief Complaint: hx of polyps, GERD Relevant Family History (Specify if Yes): No Relevant Social History: Other (specify) (substance abuse in past) Present Medications: see Short Stay Collaborative assessment Medical History: Significant History (Biceps tendon tear (~2021) Anxiety with depression Colon polyps Elevated blood pressure reading in office with diagnosis of hypertension DWAYNE on CPAP Rectus diastasis GERD (gastroesophageal reflux disease)) History of Previous Operations: Relevant previous surgery/procedure and date(s) ( Hx of appendectomy) Allergies: Allergies Allergy/AdvReac Type Severity Reaction Status Date / Time No Known Allergies Allergy Verified 11/01/23 08:53 Review of Systems Sugical H&P ROS: Negative: Constitution, Cardiovascular, Respiratory, Neurological, Psychiatric, Hem-Onc, Allergic/Immunologic, Gastrointestinal, Genitourinary, Musculoskeletal, Integumentary, Endocrine and Eyes/Ears/Nose/Throat Exam Surgical H&P Exam: Normal: HEENT, Normal: Heart, Normal: Lungs, Normal: Extremities, Normal: Abdomen, Normal: Skin and Normal: Neurological Plan Diagnosis/Plan: Unchanged I have reviewed the history and physical and performed a pertinent physical examination on my patient. No changes have occurred unless specified. Time Spent With Patient Time: Total time managing care of this patient today ____ minutes.
[2024-02-25 07:24] VITALS: BMI 47.6
[2024-02-25 07:44] VITALS: BP 146/93; PULSE 84; RESP 16; TEMP 36.6; O2SAT 95
[2024-02-25] MEDS: Lactated Ringers 1,000 ML 100 ML IVCONT (07:47)
--- NOTE | 2024-02-25 09:03 | P.OPN-COLO_ITS ---
Colonoscopy Operative Note Operative Note Date of Service: 02/25/24 Narrative: Operative Information Procedure Description: EGD, Colonoscopy Indication: GERD and hx of polyps Anesthesia: MAC FLEXIBLE TRANSORAL UPPER GASTROINTESTINAL ENDOSCOPY AND COLONOSCOPY PROCEDURE NOTE UPPER ENDOSCOPY Consent: Indications for the procedure and potential complications of bleeding, perforation, reaction to medications and missed diagnosis were discussed with the patient and informed consent was obtained. Instrument: Olympus GIF H 190 J mid size upper endoscope Monitoring: Vital signs and clinical assessment, continuous EKG monitoring, Pulse oximetry, Carbon Dioxide monitoring and blood pressure monitoring were done throughout the procedure. Procedure: The patient was placed in the left lateral decubitis position and pre-procedure medications were administered and a bite block was placed. The endoscope was inserted into the mouth and advanced under direct vision to the third part of duodenum. A careful inspection was made as the upper endoscope was withdrawn including a retroflexed examination of the proximal stomach; Findings and interventions are described below. Findings: Larynx:normal Esophagus: GE junction at 42 cm, diaphragm hiatus at 42 cm, erosive esophagitis with superficial ulcer noted Stomach: Patchy erythema. Biopsies were obtained. Grade 2 flap valve on retroflexed examination of the cardia. Duodenum: Normal bulb and descending duodenum, Intervention: Biopsies as noted above, COLONOSCOPY Instrument: Olympus variable stiffness pediatric scope 190L Colonoscopy Monitoring: Vital signs and clinical assessment, continuous EKG monitoring, Pulse oximetry, Carbon Dioxide monitoring and blood pressure monitoring were done throughout the procedure. Colon withdrawal time was 23 minutes. Procedure: The patient was placed in the left lateral decubitis position and pre-procedure medications were administered. After a digital rectal examination of the ano-rectum, the video colonoscope was inserted into the rectum and advanced through the colon to the cecum/TI. The colonoscope was slowly withdrawn in a retrograde panoramic fashion and the colon mucosa was carefully examined including a retroflexed view of the rectum. Findings and interventions are described below. Procedure Difficulty:moderate Findings: Terminal Ileum-normal Cecum: x 1 sessile polyp 3-4 mm removed with cold forceps, x1 flat polyp 10-12 mm lifted with eleview and removed with cold snare Ascending Colon: x 2 flat polyps 12-14 mm lifted with codl snare and removed with cold snare Transverse Colon -normal Descending Colon:normal Sigmoid Colon: x 1 sessile polyp 8-10 mm removed with cold snare Rectum: Retroflexion with small internal hemorrhoids, grade I, x 1 sessile polyp 3-4 mm removed with cold forceps Anorectum - normal Colon preparation: [place] Bowel Preparation Scale Right colon; 2 Transverse colon: 2 Left colon; 2 (0 = Unprepared colon segment with mucosa not seen due to solid stool that canno t be cleared. 1 = Portion of mucosa of the colon segment seen, but other areas of the colon segment not well seen due to staining, residual stool and/or opaque liquid. 2 = Minor amount of residual staining, small fragments of stool and/or opaque liquid, but mucosa of colon segment seen well. 3 = Entire mucosa of colon segment seen well with no residual staining, small fragments of stool or opaque liquid) Impression and Post Procedure Diagnosis: Endoscopy Findings: gastritis eroeive esophagitis Colonoscopy Findings: colon polyps internal hemorrhoids Plan: Await Pathology results Repeat Colonoscopy in 1 year or earlier if clinically indicated, may have sessile serrated syndrome High fiber diet leaflet avoid straining at stool, epsom salts and sitz bath, anusol supps or cream commence pantoprazole 40 mg, repeat EGD in 1 year Above findings were reviewed with the patient and relevant handouts were provided if indicated.
[2024-02-25 09:18] VITALS: BP 133/90; PULSE 80; RESP 16; TEMP 36.1; O2SAT 96
[2024-02-25 09:31] VITALS: BP 134/84; PULSE 78; RESP 16; O2SAT 94
[2024-02-25 09:45] VITALS: BP 131/75; PULSE 75; RESP 16; O2SAT 96
[2024-02-25 09:56] VITALS: BP 127/73; PULSE 71; RESP 16; TEMP 36.2; O2SAT 95
== END 2024-02-25 10:20 | disposition home or self-care (01) ==
PROVIDERS: PCP Physician Assistant; Visit Provider Internal Medicine Gastroenterology
PROC: (CPT 45385; principal; 2024-02-25 08:20)
DX: Z12.11 Encounter for screening for malignant neoplasm of colon (principal); Z86.0101 Personal history of adenomatous and serrated colon polyps; D12.0 Benign neoplasm of cecum; D12.2 Benign neoplasm of ascending colon; K63.5 Polyp of colon; K64.0 First degree hemorrhoids; K62.1 Rectal polyp; K21.9 Gastro-esophageal reflux disease without esophagitis; R16.0 Hepatomegaly, not elsewhere classified; K22.10 Ulcer of esophagus without bleeding; K29.70 Gastritis, unspecified, without bleeding; K44.9 Diaphragmatic hernia without obstruction or gangrene; K76.0 Fatty (change of) liver, not elsewhere classified; R76.8 Other specified abnormal immunological findings in serum; M62.08 Separation of muscle (nontraumatic), other site; I10 Essential (primary) hypertension; E78.5 Hyperlipidemia, unspecified; B19.20 Unspecified viral hepatitis C without hepatic coma; F41.8 Other specified anxiety disorders; G47.33 Obstructive sleep apnea (adult) (pediatric); Z79.899 Other long term (current) drug therapy; Z99.89 Dependence on other enabling machines and devices; Z98.890 Other specified postprocedural states; F19.11 Other psychoactive substance abuse, in remission
CPT/HCPCS: 45385; 45380; 45381; 43239; 88305; 88313; 88342; J1100; J1596; J2003; J2704

== ENCOUNTER → 2024-02-25 07:13 | Outpatient (BNV) | payer OTHER, SELFPAY | PROVIDERS: PCP Physician Assistant; Visit Provider Internal Medicine Gastroenterology | DX: Z12.11 Encounter for screening for malignant neoplasm of colon (principal); Z86.0100 Personal history of colon polyps, unspecified; K63.5 Polyp of colon; K62.1 Rectal polyp; K64.0 First degree hemorrhoids; K21.00 Gastro-esophageal reflux disease with esophagitis, without bleeding; K29.70 Gastritis, unspecified, without bleeding | CPT/HCPCS: 43239; 45380; 45381; 45385 ==

== ENCOUNTER 2024-03-20 13:00 | Outpatient (AMB) | payer OTHER, SELFPAY ==
[2024-03-20 13:11] VITALS: BP 144/80; PULSE 90; O2SAT 98; BMI 49.1
--- NOTE | 2024-03-20 13:11 | A.OFFVIS_ITS ---
Vital Signs 03/20/24 13:11 Height 5 ft 7 in Weight 313 lb 7.957 oz BMI 49.1 BP 144/80 H Blood Pressure Location Rt brachial Position Sitting Pulse 90 Pulse Source Pulse Oximeter Pulse Oximetry (%) 98 Oxygen Delivery Method Room Air Comment Pt reports having caffeine within last hour Intake Visit Reasons: s/p egd/colon Intake Note: ESTABLISHED PATIENT Reason; scheduled in office s/p FUV duo w/ TH Changes/concerns? No concerns per pt. Licensed And Certified Midwife Required: No Allergies No Known Allergies Allergy (Verified 03/20/24 13:11) HPI HPI s/p egd/colon: Details: LAST VISIT Hepatitis C antibody positive in blood Fatty liver Liver mass, left lobe Colon polyps Screen for colon cancer Plan Patient denies any GI, cardiac or respiratory symptoms.? Denies any issues with anesthesia in the past.? History of sleep apnea uses CPAP every night No history infectious diseases in the past or present.? Not on any anticoagulation therapy.? Family history of CRC.? Patient denies melena, hematochezia, unintentional weight loss or ribbon like stools.? Nonalcoholic fatty liver most likely related to patient gaining a lot of weight since [facility]. Patient does admit to be eating food that is unhealthy. Has not gone to exercise since [facility]. Patient states that he started changing his diet and will be going to the gym regularly. However really will rule out autoimmune disorders, ultrasound with elastography, will check liver fibrosis panel. Discussed at length the pre- procedure,? prep, diet & medications as well as what to expect prior, during and after the procedure.?? Stressed the importance of good bowel prep.? Recommended the use of Vaseline or Calmoseptine OTC & baby wipes with bowel movements to promote comfort.? ?Patient verbalizes understanding and agrees to plan of care.? He was given the opportunity to ask questions and all questions answered.? We will see him after the procedure.? Orders Orders Alpha Fetoprotein Today R79.89 Ceruloplasmin Today R79.89 IRON PROFILE Today D64.9 Mitochondrial Antibody Today R79.89 US abdomen melgar w elastography Today R74.01 Smooth Muscle Antibody Today R79.89 Ferritin Today R74.8 Prothrombin Time INR Today R74.8 Liver Fibrosis Pnl Today R74.8 Medications New bisacodyl (Dulcolax (bisacodyl)) take 4 tabs at noon the day before your colonoscopy 20 mg (4 x 5 mg) PO ONCE 1 day 4 tabs 0RF Z12.11 polyethylene glycol 3350 (Miralax) As directed by gastroenterology department at [facility] 238 grams PO ONCE 238 grams 0RF Z12.11 UPPER ENDOSCOPY AND COLONOSCOPY: Findings: Larynx:normal Esophagus: GE junction at 42 cm, diaphragm hiatus at 42 cm, erosive esophagitis with superficial ulcer noted Stomach: Patchy erythema. Biopsies were obtained. Grade 2 flap valve on retroflexed examination of the cardia. Duodenum: Normal bulb and descending duodenum, Intervention: Biopsies as noted above, COLONOSCOPY Instrument: Olympus variable stiffness pediatric scope 190L Colonoscopy Monitoring: Vital signs and clinical assessment, continuous EKG monitoring, Pulse oximetry, Carbon Dioxide monitoring and blood pressure monitoring were done throughout the procedure. Colon withdrawal time was 23 minutes. Procedure: The patient was placed in the left lateral decubitis position and pre-procedure medications were administered. After a digital rectal examination of the ano-rectum, the video colonoscope was inserted into the rectum and advanced through the colon to the cecum/TI. The colonoscope was slowly withdrawn in a retrograde panoramic fashion and the colon mucosa was carefully examined including a retroflexed view of the rectum. Findings and interventions are described below. Procedure Difficulty:moderate Findings: Terminal Ileum-normal Cecum: x 1 sessile polyp 3-4 mm removed with cold forceps, x1 flat polyp 10-12 m m lifted with eleview and removed with cold snare Ascending Colon: x 2 flat polyps 12-14 mm lifted with codl snare and removed with cold snare Transverse Colon -normal Descending Colon:normal Sigmoid Colon: x 1 sessile polyp 8-10 mm removed with cold snare Rectum: Retroflexion with small internal hemorrhoids, grade I, x 1 sessile polyp 3-4 mm removed with cold forceps Anorectum - normal Colon preparation: [place] Bowel Preparation Scale Right colon; 2 Transverse colon: 2 Left colon; 2 (0 = Unprepared colon segment with mucosa not seen due to solid stool that cannot be cleared. 1 = Portion of mucosa of the colon segment seen, but other areas of the colon segment not well seen due to staining, residual stool and/or opaque liquid. 2 = Minor amount of residual staining, small fragments of stool and/or opaque liquid, but mucosa of colon segment seen well. 3 = Entire mucosa of colon segment seen well with no residual staining, small fragments of stool or opaque liquid) Impression and Post Procedure Diagnosis: Endoscopy Findings: gastritis eroeive esophagitis Colonoscopy Findings: colon polyps internal hemorrhoids Plan: Await Pathology results Repeat Colonoscopy in 1 year or earlier if clinically indicated, may have sessile serrated syndrome High fiber diet leaflet avoid straining at stool, epsom salts and sitz bath, anusol supps or cream commence pantoprazole 40 mg, repeat EGD in 1 year PATHOLOGY: Diagnosis A. Cecum, polypectomies: Fragments of sessile serrated lesions/polyps; negative for cytologic dysplasia. B. Colon, ascending, polypectomies: Fragments of sessile serrated lesions/polyps; negative for cytologic dysplasia. C. Colon, sigmoid, polypectomy: Hyperplastic mucosal polyp. D. Rectum, polypectomy: Hyperplastic mucosal polyp. E. Stomach, biopsy: Small fragments of oxyntic mucosa within normal limits; no Helicobacter organisms seen. TODAY'S VISIT Patient is here today for follow-up and to discuss upper endoscopy and colonoscopy results. Sessile serrated polyps found on colonoscopy, normal stomach biopsy. Patient denies any ill effects from the prep, anesthesia or procedure itself. Patient denies any melena, hematochezia, unintentional weight loss or ribbon like stools. Denies dyspepsia, dysphagia or odynophagia. Patient is taking pantoprazole daily and his symptoms of acid reflux are suppressed. [facility] Medical History Hepatitis C antibody positive in blood Biceps tendon tear (~2021) Anxiety with depression Colon polyps Elevated blood pressure reading in office with diagnosis of hypertension DWAYNE on CPAP Rectus diastasis GERD (gastroesophageal reflux disease) Surgical History History of surgical procedure on maxillary sinus History of surgery on arm Hx of shoulder surgery History of esophagogastroduodenoscopy (EGD) H/O colonoscopy Hx of appendectomy Family History Mother Breast cancer Maternal Grandfather Colon cancer Other Substance abuse Social History Housing: House Patient Tobacco Use Status: Current someday Tobacco user Years Smoked: 15 e-Cigarette/Vaping Use: Never Used Substance Use Type: Amphetamines, Crack/Cocaine, Former Substance User and Marijuana service: No Current occupational status: employed 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 Current occupational exposures/hazards: No Cognitive needs: No Hearing needs: No Vision needs: No Review of Systems Const Denies weight gain and Denies weight loss ENT Reports no additional complaints, Denies dysphagia and Denies odynophagia Card Reports no additional complaints Resp Reports no additional complaints GI Reports abdominal pain, Denies belching, Denies melena, Denies bloating, Denies change in bowel habits, Denies dysphagia, Denies excessive flatus, Denies dyspepsia, Denies heartburn, Denies diarrhea, Denies loose stools, Denies nausea, Denies odynophagia and Denies vomiting Reports no additional complaints Musc Reports no additional complaints Neuro Reports no additional complaints Psych Reports no additional complaints Endo Reports no additional complaints Physical Exam Vital Signs: Last Vital Signs Pulse 90 03/20/24 13:11 BP 144/80 H 03/20/24 13:11 Pulse Ox 98 03/20/24 13:11 Oxygen Delivery Method Room Air 03/20/24 13:11 BMI result Body Mass Index 49.1 Const General: healthy appearing and no acute distress Nutritional Appearance: obese Orientation/consciousness: patient oriented x3 Resp Effort & Inspection: normal respiratory effort, able to speak in complete sentences, no tracheal deviation and symmetric chest movement Auscultation: clear to auscultation bilaterally Cardio Rate: regular rate GI Inspection: No distended, Yes obesity and Yes visible herniation (Diastasis recti) Palpation (GI): Soft to palpation, not firm, nontender and No hepatosplenomegaly present Auscultation: normal bowel sounds General: Yes no CVA tenderness Back/Spine/Pelvis Back: no CVA tenderness Skin General skin exam: elasticity normal, turgor normal and dry skin Neuro General: patient oriented x3 Psych Appearance: grossly normal Mental Status: mental status grossly normal Results Reviewed Results Reviewed: ABDOMINAL ULTRASOUND WITH LIVER ELASTOGRAPHY IMPRESSION: 1. Enlarged fatty liver. 2. Elastography: Liver elastography measurements are within normal (METAVIR Stage F0). Assessment & Plan Assessment & Plan (1) Hepatitis C antibody positive in blood: Code(s): R76.8 - Other specified abnormal immunological findings in serum Category: Medical (2) Fatty liver: Code(s): K76.0 - Fatty (change of) liver, not elsewhere classified Category: Medical (3) Liver mass, left lobe: Code(s): R16.0 - Hepatomegaly, not elsewhere classified Category: Medical (4) Colon polyps: Code(s): K63.5 - Polyp of colon Category: Medical Qualifiers: Colon polyp type: adenomatous Colon location: unspecified part of colon Qualified Code(s): D12.6 - Benign neoplasm of colon, unspecified Plan Patient will continue high-fiber diet. Weight loss encouraged. Colonoscopy will be repeated in 1 year. Currently patient denies any GI concerning symptoms. He will follow-up in 8 months to discuss going for colonoscopy and how to prep. He will call our office if he will have any GI concerning symptoms. Patient is agreeable to current plan of care and verbalizes understa nding of instructions. He was given the opportunity to ask questions and all questions answered. Thank you for allowing me to participate in his care Coding Level of Care Code Est Pt Level 3 (90951) Diagnoses Hepatitis C antibody positive in blood R76.8 Fatty liver K76.0 Liver mass, left lobe R16.0 Adenomatous polyp of colon, unspecified part of colon D12.6 Colon polyp type: adenomatous Colon location: unspecified part of colon Time Spent (min) 30 Comment 20 minutes spent with patient and additional 10 minutes spent reviewing his records
== END 2024-03-20 15:41 | disposition home or self-care (01) ==
PROVIDERS: Visit Provider Nurse Practitioner Family
DX: R76.8 Other specified abnormal immunological findings in serum (principal); K76.0 Fatty (change of) liver, not elsewhere classified; R16.0 Hepatomegaly, not elsewhere classified; D12.6 Benign neoplasm of colon, unspecified
CPT/HCPCS: 99213

== ENCOUNTER → 2024-03-20 13:00 | Outpatient (BNVA) | payer OTHER, SELFPAY | PROVIDERS: Visit Provider Nurse Practitioner Family ==

== ENCOUNTER 2024-04-29 08:11 | Outpatient (AMB) | payer OTHER, SELFPAY ==
--- NOTE | 2024-04-29 08:18 | A.OFFPC_ITS ---
Vital Signs 04/29/24 08:22 Height 5 ft 7 in Weight 313 lb 6 oz BMI 49.1 BP 138/87 Blood Pressure Location Rt brachial Position Sitting Respiration 16 Pulse 76 Pulse Source Pulse Oximeter Pulse Oximetry (%) 98 Oxygen Delivery Method Room Air Intake Visit Reasons: f/u bp and labs Intake Note: Follow up htn and lab results. Public Health Veterinarian Required: No Allergies No Known Allergies Allergy (Verified 04/29/24 08:19) Medication List - Last Reconciled 04/29/24 by Pao Mcfarlane PA-C ibuprofen 200 mg PO Q6H PRN pantoprazole 40 mg PO DAILY Tobacco use date assessed: 04/29/24 Dental Screening Dental Screen Date: 08/07/23 HPI f/u bp and labs HPI Details History of Present Illness The patient is a 43-year-old male presenting with a follow-up for recent diagnostic test results and management of hypertension and weight. The patient has a history of essential hypertension, which has been noted to be borderline with variations in readings. He acknowledges contributing lifestyle factors, such as consuming high caffeine levels through energy drinks and espresso, and admits to inconsistent dietary and exercise habits. His blood pressure was notably elevated during a recent visit following the consumption of an energy drink but has been variably borderline at subsequent visits. The patient is contemplating lifestyle changes, including smoking cessation and engagement in physical activity through a home gym system, although reports inconsistency in these efforts. Additionally, the patient tested positive for hepatitis C antibodies, indicative of a self-cleared past infection, likely associated with a history of injection drug use. He has not undergone any formal treatment for hepatitis C. There is a diagnosis of gastroesophageal reflux disease, currently managed with Pantopra zole, which alleviates acid reflux symptoms. The patient's recent GI evaluation included a colonoscopy and endoscopy, revealing more than five polyps, necessitating annual screening. He is scheduled for follow-up in eight months. There is a positive family history for colon cancer and newly diagnosed stage 3 prostate cancer in his father, prompting consideration of prostate-specific antigen (PSA) testing. Concerns surrounding weight management have been discussed, with potential pharmacotherapy options such as GLP-1 agonists (e.g., Ozempic) considered but not preferred by the patient due to possible side effects and lifestyle suitability. Health Maintenance - Encouraged smoking cessation and dieta ry adjustments focusing on reducing caffeine intake. - Discussion of lifestyle modifications for hypertension management. - Importance of weight management priscila puente. - Consideration of annual PSA testing gi marry family history of prostate cancer. - Regular monitoring of liver and kidney function, electrolytes, complete blood count, and lipid profile. - Recommended follow-up for blood pressu re control and potential medication intervention if lifestyle efforts do not yield improvement. 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 - Former history of injection drug use w ith associated past hepatitis C infecti on. - Current attempts to engage in physical activity via a home gym system. - Reports inconsistent dietary habits an d high caffeine consumption. - Family history notable for colon cance r and prostate cancer. - Has two children and reports limitatio ns in engaging in physical activity with them due to weight and sedentary lifestyle. Review of Systems - Cardiac: Reports occasional shortness of breath associated with activity. - General: Denies chronic fatigue, weigh t loss, or fever. Physical Exam General: Well developed, well nourished, in no acute distress. Appears stated age. Cardiac: RRR, no murmurs Lungs: clear, equal breath sounds Abdomen: soft, nontender, no CVA tenderness Extremities: no edema Neuro: alert, oriented x3, mood appropriate Plan - Essential Hypertension: Plan to reasse ss in three months. If blood pressure remains elevated, consider initiating antihypertensive medication. Lifestyle modifications focusing on diet, weight loss, and reduction of caffeine intake encouraged. - Past Hepatitis C infection: No current treatment indicated; maintain regular follow-up and liver function tests. - Gastroesophageal Reflux Disease: Yoli nue Pantoprazole as needed. Monitor symptom control and adjust medications if necessary. - Obesity: Encouraged adherence to lifes tyle modifications, including regular physical activity and dietary changes. Discussed non-pharmacological strategies as primary intervention. - Family History of Cancer: Schedule PSA testing and continue regular colonoscopies as per GI recommendations. - Complete laboratory workup: Ordered to monitor comprehensive metabolic panel, lipid profile, and complete blood count to assess overall health status and inform further management. [facility] Medical History Hepatitis C antibody positive in blood Biceps tendon tear (~2021) Anxiety with depression Colon polyps Elevated blood pressure reading in office with diagnosis of hypertension DWAYNE on CPAP Rectus diastasis GERD (gastroesophageal reflux disease) Surgical History History of surgical procedure on maxillary sinus History of surgery on arm Hx of shoulder surgery History of esophagogastroduodenoscopy (EGD) H/O colonoscopy Hx of appendectomy Family History Mother Breast cancer Maternal Grandfather Colon cancer Other Substance abuse Social History Housing: House Patient Tobacco Use Status: Current someday Tobacco user Cigarettes Per Day: 3 Years Smoked: 15 e-Cigarette/Vaping Use: Never Used Second Hand Smoke Exposure: No Substance Use Type: Amphetamines, Crack/Cocaine, Former Substance User and Marijuana service: No Current occupational status: employed 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 Current occupational exposures/hazards: No Cognitive needs: No Hearing needs: No Vision needs: No Questionnaire PHQ-9 Over the last 2 weeks, how often have you been bothered by any of the following problems? 1. Little interest or pleasure in doing things: not at all 2. Feeling down, depressed, or hopeless: not at all 3. Trouble falling or staying asleep, or sleeping too much: not at all 4. Feeling tired or having little energy: several days 5. Poor appetite or overeating: not at all 6. Feeling bad about yourself - or that you are a failure or have let yourself or your family down: not at all 7. Trouble concentrating on things, such as reading the newspaper or watching television: not at all 8. Moving or speaking so slowly that other people could have noticed. Or the opposite - being so fidgety or restless that you have been moving around a lot more than usual: not at all 9. Thoughts that you would be better off or of hurting yourself in some way: not at all Total score: 1 Depression Screening Interpretation: Negative Depression Screening Done: Yes 74957 - PHQ-9 Billing: Yes Source: Developed by Drs. Marco Courtney, Rosemary Hughes, Lior Antonio and colleagues, with an educational ellen from [employer]. Thrive Questionnaire Date Thrive assessed: 08/07/23 I am a: Patient What is your living situation today?: I have a steady place to live Within the past 12 months, did the food you bought not last and you didn't have the money to get more?: Never true Within the past 12 months, did you worry whether your food would run out before you got money to buy more?: Never true Do you have trouble paying for medicines?: No Do you have trouble getting transportation to medical appointments?: No Do you have trouble paying your heating and electricity bill?: No Do you have trouble taking care of your child, family member or friend?: No Do you have trouble with day-to-day activities such as bathing, preparing meals, shopping, managing finances, etc.?: No Are you currently unemployed and looking for a job?: No Are you interested in more education?: No Please select the resources that you would like help with: None Currently or been in a relationship where the following occur: No concerns reported THRIVE Score: 0 AUDIT C Alcohol Use Questionnaire (AUDIT-C) 1. How often do you have a drink containing alcohol?: Never Total Score: 0 Score Reviewed/Action Taken: Yes LUCY-7 AMB Questionnaire LUCY-7 Date LUCY - 7 assessed: 08/07/23 Feeling nervous, anxious, or on edge: 1 = Several days Not being able to stop or control worryin = Not at all Worrying too much about different things: 1 = Several days Trouble relaxin = Several days Being so restless that it is hard to sit still: 0 = Not at all Becoming easily annoyed or irritable: 1 = Several days Feeling afraid as if something awful might happen: 1 = Several days Total LUCY-7 score (0-4 normal; 5-9 mild; 10-14 moderate; 15-21 severe): 5 Source: Developed by Drs. Marco Courtney, Rosemary Hughes, Lior Antonio and colleagues, with an educational ellen from [employer]. LUCY-7 Assessment Billing LUCY-7 Assessment Tool: LUCY-7 Assessment 72230 Physical exam (Primary Care) Vital Signs: Last Vital Signs Pulse 76 04/29/24 08:22 Resp 16 04/29/24 08:22 BP 138/87 04/29/24 08:22 Pulse Ox 98 04/29/24 08:22 Oxygen Delivery Method Room Air 04/29/24 08:22 BMI result Body Mass Index 49.1 Tobacco/Smoking Status: Tobacco use Status Tobacco use date assessed 04/29/24 04/29/24 08:21 Patient Tobacco Use Status Current someday Tobacco 04/29/24 08:21 e-Cigarette/Vaping Use Never Used 04/29/24 08:21 PHQ-9: PHQ-9 Score PHQ-9: Total score 1 04/29/24 08:45 Depression Screening Interpretation: Negative Thrive Assessment: Date of Thrive Assessment Date Thrive assessed 08/07/23 04/29/24 08:21 Currently or been in a relationship where the following occur: No concerns reported Coding Level of Care Code Est Pt Level 4 (87273) Complex EM visit Add On G2211 Diagnoses IFG (impaired fasting glucose) R73.01 Dyslipidemia E78.5 Severe obesity (BMI >= 40) E66.01 Hepatitis C antibody positive in blood R76.8 Prehypertension R03.0 Additional Codes PHQ-9 - 08438 - PHQ-9 Billing: Yes ([id number]) LUCY-7 Assessment Billing - LUCY-7 Assessment Tool: LUCY-7 Assessment 02860 ([id number]) Assessment & Plan Assessment & Plan (1) IFG (impaired fasting glucose): Code(s): R73.01 - Impaired fasting glucose Category: Medical (2) Dyslipidemia: Code(s): E78.5 - Hyperlipidemia, unspecified Category: Medical (3) Severe obesity (BMI >= 40): Code(s): E66.01 - Morbid (severe) obesity due to excess calories Category: Medical (4) Hepatitis C antibody positive in blood: Code(s): R76.8 - Other specified abnormal immunological findings in serum Category: Medical (5) Prehypertension: Code(s): R03.0 - Elevated blood-pressure reading, without diagnosis of hypertension Category: Medical Plan . Orders: Orders Complete Blood Count Auto Diff Today E66.01 - Morbid (severe) obesity due to excess calories, E78.5 - Hyperlipidemia, unspecified, R73.01 - Impaired fasting glucose, R76.8 - Other specified abnormal immunological findings in serum Comprehensive [place]. Panel Fast Today E66.01 - Morbid (severe) obesity due to excess calories, E78.5 - Hyperlipidemia, unspecified, R73.01 - Impaired fasting glucose, R76.8 - Other specified abnormal immunological findings in serum TSH reflex Free T4 Today E66.01 - Morbid (severe) obesity due to excess calories, E78.5 - Hyperlipidemia, unspecified, R73.01 - Impaired fasting glucose, R76.8 - Other specified abnormal immunological findings in serum Lipid Panel Today E66.01 - Morbid (severe) obesity due to excess calories, E78.5 - Hyperlipidemia, unspecified, R73.01 - Impaired fasting glucose, R76.8 - Other specified abnormal immunological findings in serum UA CC w/rflx Micro + Cult Today E66.01 - Morbid (severe) obesity due to excess calories, E78.5 - Hyperlipidemia, unspecified, R73.01 - Impaired fasting glucose, R76.8 - Other specified abnormal immunological findings in serum, Z13.220 - Encounter for screening for lipoid disorders Hemoglobin A1c Today R73.01 - Impaired fasting glucose Prostate Specific Antigen Scr Today Z01.89 - Encounter for other specified special examinations
[2024-04-29 08:22] VITALS: BP 138/87; PULSE 76; RESP 16; O2SAT 98; BMI 49.1
--- OUTSIDE RECORDS SUMMARY | 2024-04-29 08:22 | XMS_ITS | Clinical Summary ---
Author Organization [facility] it Address [address] [place] [address] Care Team Providers Care Ginner Helper Name Role Phone Unavailable Primary Care Provider Unavailabl e Surgical History Surgery Date Site/Laterality Comments APPENDECTOMY PROCEDURE:APPENDECTOMY OTHER SURGICAL HISTORY PROCEDURE:OSTEOTOMY MAXILLARY SHOULDER SURGERY x2 Left PROCEDURE:SHOULDER SURGERY TENDON REPAIR 02/23/2019 Right PROCEDURE:TENDON REPAIR;COMMENT:Procedure: REPAIR DISTAL BICEPS TENDON RIGHT ELBOW; Surgeon: Say Monroy MD; Location: [facility]; [facility]; Laterality: Right; Medical History Medical History Date Comments PONV (postoperative nausea and vomiting) DX:PONV (postoperative nausea and vomiting) GERD (gastroesophageal reflux disease) DX:GERD (gastroesophageal reflux disease) Malignant hyperthermia due to anesthesia 2000 DX:Malignant hyperthermia due to anesthesia;COMMENT:only with his one surgery- has had surgery after with no difficulty Social History Tobacco Use Types Packs/Day Years Used Date Smoking Tobacco: Some Days Smokeless Tobacco: Never Alcohol Use Standard Drinks/Week Comments Yes 1 (1 standard drink = 0.6 oz pur e alcohol) Sex and Gender Information Value Date Recorded Sex Assigned at Not on file Legal Sex Male 7:46 AM EST Gender Identity Not on file Sexual Orientation Not on file Obstetrics History Plan of Treatment Health Maintenance Due Date Last Done Comments Pneumococcal Vaccine: Pediat rics (0 to 5 Years) and At-Risk Patients (6 to 64 Years) (1 of 2 - PCV) 08/18/1985 DTaP,Tdap,and Td Vaccines (1 - Tdap) 08/18/1998 Hepatitis B Vaccines (1 of 3 - 19+ 3-dose series) 08/18/1998 Cholesterol Screening (Lipid Panel) 10/08/2023 Depression Screening 10/08/2023 HIV Screening 10/08/2023 Hepatitis C Screening 10/08/2023 Social Influencers of Health Screening 10/08/2023 COVID-19 Vaccine (2023-2 5 season) 2023 Influenza Vaccine (#1) 2023 HIB Vaccines Aged Out No longer eligi ble based on patient's age to complete this topic HPV Vaccines Aged Out No longer eligi ble based on patient's age to complete this topic Hepatitis A Vaccines Aged Out No long er eligible based on patient's age to complete this topic IPV Vaccines Aged Out No longer eligi ble based on patient's age to complete this topic MMR Vaccines Aged Out No longer eligi ble based on patient's age to complete this topic Meningococcal ACWY Vaccine Aged Out N o longer eligible based on patient's age to complete this topic RSV Immunization Patients Un elver 20 months Aged Out No longer eligible b ased on patient's age to complete this topic Varicella Vaccines Aged Out No longer eligible based on patient's age to complete this topic Medical Devices Implanted Type Area Centrifugal Extractor Operator Device Identifier Shelf Expiration Date Model / Serial / Lot Endobutton Fixation Button 4mm X 12mm Implanted:Qty: 1 on 02/23/2019 by Say Monroy MD Right: Elbow 09/26/2023 [id number] / / [id number]
--- OUTSIDE RECORDS SUMMARY | 2024-04-29 08:22 | XMS_ITS | Data Portability ---
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 dairy, and greasy foodsAdd in some fruit/frui t pectins help to heal the digestive tract - apple sauce, pear sauce, apples, pears, berries, etc.Vegeta bles- variety of primarily cooked and some raw. Salads- okay to add in olive oil, spices.Add in more beneficial oils and proteins to help improve caloric intake- olive/avoc ado/grapes eed oil, avocados, beans, nuts, seeds, organic grass fed free range eggs/chick en/turkey/ fishSpices - wasabi, turmeric/c urcumin, mints, cilantro, parsley, vaishali, oregano, thymeAdd in 1/2 cup ground nuts/seeds or 2 eggs to breakfastA dd in FISH to your diet 3-5x/week Follow up in 2-4 weeks.Chec k food allergen pnl, meat IgE pnl, Igs, chicken IgG, egg yolk IgE/G, C, B9/12, AA/OA urine, cardio IQ, D3, RBC Zn/Cu, CBC/d, ferritin, CMP, A1c. Low back pain [id number] M54.5 M25.512 Rhizinate - chew 1-2 orally BEFORE every meal. Okay to add in an extra 1-2 if needed for any reflux symptoms L-glutamin e powder (5 grams)- mix into water and drink 2-3 x/day (or mix with amino supplement ) on an empty stomachNAC (N-acetyl cysteine, 500-900 mg)? 1 orally TWICE dailyFish oil - 7523-9420 mg (combined EPA + DHA) orally TWICE daily with foodVitami n D3- increase to 2 orally TWICE daily with food (=4000 IU daily)Curc uplex 95 (BCM 95 form of curcumin/t urmeric- take 200-500 mg orally 1-3x/day on days of WORKING OUT and any days of PAIN. DIET:Anti- inflammato ry with avoidance of wheat, dairy, and greasy foodsAdd in some fruit/frui t pectins help to heal the digestive tract - apple sauce, pear sauce, apples, pears, berries, etc.Vegeta bles- variety of primarily cooked and some raw. Salads- okay to add in olive oil, spices.Add in more beneficial oils and proteins to help improve caloric intake- olive/avoc ado/grapes eed oil, avocados, beans, nuts, seeds, organic grass fed free range eggs/chick en/turkey/ fishSpices - wasabi, turmeric/c urcumin, mints, cilantro, parsley, vaishali, oregano, thymeAdd in 1/2 cup ground nuts/seeds or 2 eggs to breakfastA dd in FISH to your diet 3-5x/week Follow up in 2-4 weeks.Chec k food allergen pnl, meat IgE pnl, Igs, chicken IgG, egg yolk IgE/G, C, B9/12, AA/OA urine, cardio IQ, D3, RBC Zn/Cu, CBC/d, ferritin, CMP, A1c. Hypercholesterolemia [id number] E78.2 E78.6 Jerame 08/30/17 Vitamin D3 - 10,000 IU orally daily with food x 3 months at least. Fish oil - increase to 3600 mg orally daily with food (ie. 3x/day of the 1200 mg). DIET:?Increase GOOD FATS in diet 5-7 tbs/day: 2 organic eggs, 1/2 avocado, olive oil, coconut oil, grapeseed oil, 1/2 cup of nuts/seeds .Tyler bread with nut butters instead of Ivan? s .Foods that convert from sugars to fats easily- rices, pastas, breads, sugars, sweets,INS TEAD- switch to lentil pasta/soy based pasta. Quinoa is better than rices/pota toes. Boiled sweet potato will have less sugar/star ch than baked potato.Cut carbs for 2-4 weeks and then switch into low GI/GL diet L-glutamin e powder (5 grams)- mix into water/frui ts/vegetab les (Not proteins) and drink 2-3 x/day (or mix with amino supplement ) on an empty stomach Call the office in 1-2 weeks for the Amino Acid results. Follow up in 4-6 weeks to reassess. Continue:R hizinate - chew 1-2 orally BEFORE every meal. Okay to add in an extra 1-2 if needed for any reflux symptomsNA C (N-acetyl cysteine, 500-900 mg)? 1 orally TWICE dailyVitam in D3- increase to 2 orally TWICE daily with food (=4000 IU daily)Curc uplex 95 (BCM 95 form of curcumin/t urmeric- take 200-500 mg orally 1-3x/day on days of WORKING OUT and any days of PAIN. DIET:Anti- inflammato ry with avoidance of wheat, dairy, and greasy foodsAdd in some fruit/frui t pectins help to heal the digestive tract - apple sauce, pear sauce, apples, pears, berries, etc.Vegeta bles- variety of primarily cooked and some raw. Salads- okay to add in olive oil, spices.Add in more beneficial oils and proteins to help improve caloric intake- olive/avoc ado/grapes eed oil, avocados, beans, nuts, seeds, organic grass fed free range eggs/chick en/turkey/ fishSpices - wasabi, turmeric/c urcumin, mints, cilantro, parsley, vaishali, oregano, thymeAdd in 1/2 cup ground nuts/seeds or 2 eggs to breakfastA dd in FISH to your diet 3-5x/week Reviewed food allergen pnl, meat IgE pnl, Igs, chicken IgG, egg yolk IgE/G, C, B9/12, AA/OA urine, cardio IQ, D3, RBC Zn/Cu, CBC/d, ferritin, CMP, A1c. Vitamin D deficiency [id number] E55.9 Vitamin D3 - 10,000 IU orally daily with food x 3 months at least. Health Concerns Section Related Observation LastModified by Organization Detai ls LastModified Time None Recorded Concern Status LastModified by Organization Details LastModified Time None Recorded Advance Directives Directive None Recorded Payers Encounter Date Sequence Insurance Name Policy Number Policy [place] Covered Member ID [place] Member ID Guarantor Name 08/02/2017 1 [place] [id number] Whitney Manriquez [id number] Manriquez 08/30/2017 1 [place] [id number] Whitney Manriquez [id number] Manriquez Notes Date Note Type Note Provider Name and Address Organization Details Recorded Time 08/02/2017 text/html Abdominal PainReported bypatient.Location: RUQ; RLQ; migration Quality:pain;bloati ng;dull;fullness;te nder Severity:moderate Duration:intermitte nt Onset/Timing:gone now; wax/wane Context:food Aggravating Factors:eating Alleviating Factors:moving bowels; belching Associated Symptoms:no fever; no chills; no blood in the urine; no shortness of breath; no nausea; no vomiting; no diarrhea; no constipation; normal stool; no blood in stool; normal appetite;heartburn Pain Radiation:to the groin(on the right side) Previous Tests, Treatment and/or Diagnostic Procedures:CT of the abdomen (showed a mass but colonoscopy showed nothing)Reflux/GERD Reported bypatient.Symptomsh eartburn; with acid / burning taste;postprandial pain Quality:burning;pre ssure Severity:moderate Duration:present for 6-12 months Onset/Timing:abrupt onset; occasional; occurs immediately after meals Context:non-smoker; no drug/alcohol abuse; no drug alcohol withdrawal;related to any meal(with greasy foods/red meats) Alleviating Factors:medication (pantoprazole 40 mg); non-spicy foods Aggravating Factors:worsened by food Associated Symptoms:no frequent coughing; no feeling of fullness/mass in throat; no hoarseness; no food getting stuck; no nausea; no vomiting; not vomiting blood; no regurgitation; no shortness of breath; no chest pain; no difficulty swallowing; no pain when swallowing; no bad taste; no decreased appetite; no weight loss; no black/tarry stools; no throat pain; no dental erosion; no early satiety; no halitosis;belching/ burping;heartburn;f atigue;bloating Recently well but not so great before then. SEVER RUQ pain for about 1 yr and not address it. Bad for [address] scans and U/S in the ER and found a MASS of some sort and emergency COLONOSCOPY and prayed it would not be there and it wasn't. Found 3 polyps and found 3 SEVERE REFLUX. 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 INFLAMMATION in the endoscopy in the esophagus. Mentioned about a VALVE that was staying open or too wide open. LES laxity. Told him the pills would make it better and it does.Any food that would be bad to eat- greasy foods, burgers cause more pain. Sticking to mostly just CHICKEN and HARDBOILED EGGS and BEANS and a bunch of veggies. More lax on fruits and occasional blueberries.Day went to ER -was at work and watching his clothes get TIGHTER too and it was bad and scared him into reality.ER - 07/08/17 on a SaturdayAminos workout and bedtime takes someCan eat a salad fine.Lunch- Faroese veg- carrot, cauli, gavin beans, red peppers broccoli for lunch every day and puts cabbage in that too- a whole bag of cabbage too. 3-4 servings of vegetables.Dinner- pickle on sandwich only vegetable, kidney and black beans/cup of chili with ground chicken and tomato saucesandwichDressi ngs- Leah's lettuce and arugula and avocado without dressing b/c 500 caloriesStruggling so going to see a cane packer b/c eating the same thing daily.EXERCISE- [id number] calories daily only but exercising hard so may be causing more damage than good tooRaw fish? Sashimi/salmon. Mixes wasabi in soy sauce.BM -4-5 PER DAY and solid but about to fall apart too.Stool- no blood/mucus or food in stoolBLOATED if not taking the pumpkin seed pill they gave him and gets more PRESSURE in the RUQ too.SINUSES- serious sinus infection and pretty messed up and uses saline spray and medicated stuff b/c can't get it to let loose and then coughs up stuff too - brownish color/goldish colorNO SMOKINGALLERGIES- used to have a bunch- pollen, cat dander. TREE pollen and SPRING the worst for him now too. Problems till September.Stuffed up a lot. Eyes are okayVision/Hearing- every so often RIGHT EAR ringing very HIGH PITCHED sharp ring and uncomfortable and then it just goes away too.Fish oil 600 mg 1 QDVit C 500 mgVit DMV, probiotic, collagenantioxidant (DOTFIT) https://www.[employer]. com/superior-antiox idantDotflex- Joint flex plus - collagen, SHAH, chondroitin sulfate -1 pill with breakfast = 500 mgMSKEL- LBP and RIGHT GROIN PAIN from the RUQ pain and feels like in the right testicle.LEFT SHOULDER PAIN Constant b/c of injuries. LBP from injuries tooLast accident was 2004MENTALLY-DEPRES SED/frustrated with his overall place in the world but not too deep other than that. Feeling being meant for something more.Trying to control weight to lessen LBP.SHOULDER PAIN- takes ibuprofen for it. TIGHTNESS the day after an upper body routine.LBP- more recently since carrying around the baby/MEEK. Dull/achy.Testoster one 300 mg = 1 cc 2x/wk and just started it out.No stool tests doneSTRESS- starting a new job and looking to move so more stressed than usual but not feel like stressed and more go with the flow but SLEEPING LESS and more IRRITABLE too.ENERGY- lately pretty good b/c testosterone has helped with that too. Started injections on Saturday and second injection was and worked out both of those days and both workouts those days felt really good too. Before the procedure and testosterone he would sleep daily after work and now able to get up and able to clean up.HT 5'8 WT was 280 and now 260 after the procedure with exercise and diet too in the past 3 weeks.Lean body mass is 167 lb so needs at least 1700 calories /day.RODBUSTER. Juana [place]no, [place] [address], [place], [address], [place] [facility] 08/02/2017 16:58:16 08/30/2017 text/html Abdominal PainReported bypatient.Location: RUQ; RLQ; migration Quality:pain;bloati ng;dull;fullness;te nder Severity:moderate Duration:intermitte nt Onset/Timing:gone now; wax/wane Context:food Aggravating Factors:eating Alleviating Factors:moving bowels; belching Associated Symptoms:no fever; no chills; no blood in the urine; no shortness of breath; no nausea; no vomiting; no diarrhea; no constipation; normal stool; no blood in stool; normal appetite;heartburn Pain Radiation:to the groin(on the right side) Previous Tests, Treatment and/or Diagnostic Procedures:CT of the abdomen (showed a mass but colonoscopy showed nothing)Reflux/GERD Reported bypatient.Symptomsh eartburn; with acid / burning taste;postprandial pain Quality:burning;pre ssure Severity:moderate Duration:present for 6-12 months Onset/Timing:abrupt onset; occasional; occurs immediately after meals Context:non-smoker; no drug/alcohol abuse; no drug alcohol withdrawal;related to any meal(with greasy foods/red meats) Alleviating Factors:medication (pantoprazole 40 mg); non-spicy foods Aggravating Factors:worsened by food Associated Symptoms:no frequent coughing; no feeling of fullness/mass in throat; no hoarseness; no food getting stuck; no nausea; no vomiting; not vomiting blood; no regurgitation; no shortness of breath; no chest pain; no difficulty swallowing; no pain when swallowing; no bad taste; no decreased appetite; no weight loss; no black/tarry stools; no throat pain; no dental erosion; no early satiety; no halitosis;belching/ burping;heartburn;f atigue;bloating Fats in eggs, avocado, some beef and cooks everything in olive oil too. 1/2 avocado at lunch. 3-4 eggs. TBS of PB on GFDF toast every am- IVAN's. Rice, pork and coke for dinner last night. Brown rice pasta. Next week is his heavy load week for testosterone and 2.5 cc and then not sure how he will be after that too. Not done well with seeds and L-gln but okay with rest of recommendations. LOW TESTOSTERONE.Longes t gone without any Rx is 8 days and now on day 8 for the second time without having to take anything too. Feels much better but side effect of the pill they gave him- day 9 was so TERRIBLE with sx but that is not much for him too.Marvin shake with ice and almond milk. Recently well but not so great before then. SEVER RUQ pain for about 1 yr and not address it. Bad for [address] scans and U/S in the ER and found a MASS of some sort and emergency COLONOSCOPY and prayed it would not be there and it wasn't. Found 3 polyps and found 3 SEVERE REFLUX. 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 INFLAMMATION in the endoscopy in the esophagus. Mentioned about a VALVE that was staying open or too wide open. LES laxity. Told him the pills would make it better and it does.Any food that would be bad to eat- greasy foods, burgers cause more pain. Sticking to mostly just CHICKEN and HARDBOILED EGGS and BEANS and a bunch of veggies. More lax on fruits and occasional blueberries.Day went to ER -was at work and watching his clothes get TIGHTER too and it was bad and scared him into reality.ER - 07/08/17 on a SaturdayAmino workout and bedtime takes someCan eat a salad fine.Lunch- Faroese veg- carrot, cauli, gavin beans, red peppers broccoli for lunch every day and puts cabbage in that too- a whole bag of cabbage too. 3-4 servings of vegetables.Dinner- pickle on sandwich only vegetable, kidney and black beans/cup of chili with ground chicken and tomato saucesandwichJessei ngs- Leah's lettuce and arugula and avocado without dressing b/c 500 caloriesStruggling so going to see a cane packer b/c eating the same thing daily.EXERCISE- [id number] calories daily only but exercising hard so may be causing more damage than good tooRaw fish? Sashimi/salmon. Mixes wasabi in soy sauce.BM -4-5 PER DAY and solid but about to fall apart too.Stool- no blood/mucus or food in stoolBLOATED if not taking the pumpkin seed pill they gave him and gets more PRESSURE in the RUQ too.SINUSES- serious sinus infection and pretty messed up and uses saline spray and medicated stuff b/c can't get it to let loose and then coughs up stuff too - brownish color/goldish colorNO SMOKINGALLERGIES- used to have a bunch- pollen, cat dander. TREE pollen and SPRING the worst for him now too. Problems till September.Stuffed up a lot. Eyes are okayVision/Hearing- every so often RIGHT EAR ringing very HIGH PITCHED sharp ring and uncomfortable and then it just goes away too.Fish oil 600 mg 1 QDVit C 500 mgVit DMV, probiotic, collagenantioxidant (DOTALENTY) https://www.[employer]. M-Files/superior-antiox idantDotflex- Joint flex plus - collagen, SHAH, chondroitin sulfate -1 pill with breakfast = 500 mgMSKEL- LBP and RIGHT GROIN PAIN from the RUQ pain and feels like in the right testicle.LEFT SHOULDER PAIN Constant b/c of injuries. LBP from injuries tooLast accident was 2004MENTALLY-DEPRES SED/frustrated with his overall place in the world but not too deep other than that. Feeling being meant for something more.Trying to control weight to lessen LBP.SHOULDER PAIN- takes ibuprofen for it. TIGHTNESS the day after an upper body routine.LBP- more recently since carrying around the baby/MEEK. Dull/achy.Testoster one 300 mg = 1 cc 2x/wk and just started it out.No stool tests doneSTRESS- starting a new job and looking to move so more stressed than usual but not feel like stressed and more go with the flow but SLEEPING LESS and more IRRITABLE too.ENERGY- lately pretty good b/c testosterone has helped with that too. Started injections on Saturday and second injection was and worked out both of those days and both workouts those days felt really good too. Before the procedure and testosterone he would sleep daily after work and now able to get up and able to clean up.HT 5'8 WT was 280 and now 260 after the procedure with exercise and diet too in the past 3 weeks.Lean body mass is 167 lb so needs at least 1700 calories /day.RODBUSTER. Juana Johnson, [place] [address], [place], [address], [place] [facility] [employer] 08/30/2017 16:28:54
== END 2024-04-29 08:53 | disposition home or self-care (01) ==
PROVIDERS: PCP Physician Assistant; Visit Provider Physician Assistant
DX: R73.01 Impaired fasting glucose (principal); E78.5 Hyperlipidemia, unspecified; E66.01 Morbid (severe) obesity due to excess calories; Z68.42 Body mass index [BMI] 45.0-49.9, adult; R76.8 Other specified abnormal immunological findings in serum; R03.0 Elevated blood-pressure reading, without diagnosis of hypertension

== ENCOUNTER → 2024-04-29 08:11 | Outpatient (BNVA) | payer OTHER, SELFPAY | PROVIDERS: PCP Physician Assistant; Visit Provider Physician Assistant | DX: R73.01 Impaired fasting glucose (principal); E78.5 Hyperlipidemia, unspecified; E66.01 Morbid (severe) obesity due to excess calories; Z68.42 Body mass index [BMI] 45.0-49.9, adult; R76.8 Other specified abnormal immunological findings in serum; R03.0 Elevated blood-pressure reading, without diagnosis of hypertension | CPT/HCPCS: 96127 ==

== ENCOUNTER 2024-04-29 09:09 | Outpatient (REF) | payer OTHER, SELFPAY ==
--- OUTSIDE RECORDS SUMMARY | 2024-04-29 10:06 | XMS_ITS | Clinical Summary ---
Author Organization [facility] it Address [address] [place] [address] Care Team Providers Care Automotive Service Technician Name Role Phone Unavailable Primary Care Provider Unavailabl e Surgical History Surgery Date Site/Laterality Comments APPENDECTOMY PROCEDURE:APPENDECTOMY OTHER SURGICAL HISTORY PROCEDURE:OSTEOTOMY MAXILLARY SHOULDER SURGERY x2 Left PROCEDURE:SHOULDER SURGERY TENDON REPAIR 02/23/2019 Right PROCEDURE:TENDON REPAIR;COMMENT:Procedure: REPAIR DISTAL BICEPS TENDON RIGHT ELBOW; Surgeon: Say Monroy MD; Location: [facility]; Service: [facility]; Laterality: Right; Medical History Medical History Date [...] Health Maintenance Due Date Last Done Comments DTaP,Tdap,and Td Vaccines (1 - Tdap) 08/18/1998 Hepatitis B Vaccines (1 of 3 - 19+ 3-dose series) 08/18/1998 Pneumococcal Vaccine: Pediat rics (0 to 5 Years) and At-Risk Patients (6 to 64 Years) (1 of 2 - PCV) 08/18/1998 Cholesterol Screening (Lipid Panel) 10/08/2023 Depression [...] patient's age to complete this topic Meningococcal B Vacine Aged Out No lo nger eligible based on patient's age to complete this topic RSV Immunization Patients Un elver 20 months Aged Out No longer eligible b ased on patient's age to complete this topic Varicella Vaccines Aged Out No longer eligible based on patient's age to complete this topic Medical Devices Implanted Type Area Out Of Town Collection Clerk Device Identifier Shelf Expiration Date Model / Serial / Lot Endobutton Fixation Button 4mm X 12mm Implanted:Qty: 1 on 02/23/2019 by Say Monroy MD Right: Elbow 09/26/2023 [id number] / / [id number]
--- OUTSIDE RECORDS SUMMARY | 2024-04-29 10:06 | XMS_ITS | Encounter Summary ---
Author Organization [facility] Address [address] [place] [address] Care Team Providers Care Assistant Women'S Soccer Coach Name Role Phone No, Pcp (Do Not Change Name) Primary Care Provid er Unavailable Encounter Details Date Type Department Care Team (Late st Contact Info) Description 03/05/2014 Abstract [facility] [address] [place] [id number] Provider, Historical Social History Tobacco Use Types Packs/Day Years Used Date Smoking Tobacco: Former Alcohol Use Standard Drinks/Week Comments No 0 (1 standard drink = 0.6 oz pur e alcohol) Sex and Gender Information Value Date Recorded Sex Assigned at Not on file Legal Sex Male 9:40 AM EST Gender Identity Not on file Sexual Orientation Not on file documented as of this encounter Last Filed Vital Signs Vital Sign Reading Time Taken Comments Blood Pressure - - Pulse - - Temperature - - Respiratory Rate - - Oxygen Saturation - - Inhaled Oxygen Concentration - - Weight 118.4 kg (261 lb) 05/22/2013 11:10 AM EST Height 172.7 cm (5' 8 ) 05/22/2013 11:10 AM EST Body Mass Index 39.68 05/22/2013 11:10 AM EST documented in this encounter Plan of Treatment Not on file documented as of this encounter Visit Diagnoses Not on filedocumented in this encounter Care Teams Assistant Women'S Soccer Coach Relationship Specialty Start Date End Date No, Pcp (Do Not Change Name) PCP - General 07/08/17 documented as of this encounter
--- OUTSIDE RECORDS SUMMARY | 2024-04-29 10:06 | XMS_ITS | Clinical Summary ---
Author Organization [facility] Address [address] [place] [address] Care Team Providers Care Nuclear Spectroscopist Name Role Phone Unavailable Primary Care Provider Unavailabl e Allergies Active Allergy Reactions Criticality Noted Date Comments Cat Hair Extract Medications Medication Sig Dispensed Refills Start Date End Date Status Cholecalciferol 100 MCG (4000 UT) CAPS DAILY 0 08/16/2017 Active fluticasone (FLONASE) 50 MCG/ACT nasal spray fluticasone propionate 50 mcg/actuation nasal spray,suspension 0 Active L-Glutamine POWD 0 08/16/2017 Active Multiple Vitamin (MULTI-VITAMIN) Take 1 tablet by mouth daily. 0 07/10/2017 Active Camas-3 Fatty Acids (FISH OIL) 1000 MG CAPS 0 08/16/2017 Active Probiotic CAPS 0 07/10/2017 Active oxyCODONE-acetamin ophen (PERCOCET) 5-325 MG per tablet Take 1-2 tablets by mouth every 4 (four) hours as needed for pain for up to 6 doses. 39 tablet 0 02/23/2019 Active cephalexin (KEFLEX) 500 MG capsule Take 1 capsule (500 mg total) by mouth 4 (four) times a day. 12 capsule 0 02/23/2019 Active Testosterone 1.62 % GEL testosterone 1 cc 2x/wk 0 07/22/2017 Active Active Problems Problem Noted Date Diagnosed Date Rupture of right distal biceps tendon 02/19/2019 Social History Tobacco Use Types Packs/Day Years Used Date Smoking Tobacco: Some Days Smokeless Tobacco: Never Alcohol Use Standard Drinks/Week Comments Yes 1 (1 standard drink = 0.6 oz pur e alcohol) Sex and Gender Information Value Date Recorded Sex Assigned at Male 02/20/2019 8:43 AM EST Gender Identity Male 02/20/2019 8:43 AM EST Sexual Orientation Not on file Last Filed Vital Signs Vital Sign Reading Time Taken Comments Blood Pressure 141/64 02/23/2019 3:56 PM EST Pulse 74 02/23/2019 3:56 PM EST Temperature 36.2 ??C (97.1 ??F) 02/23/2019 3:30 PM ES T Respiratory Rate 18 02/23/2019 3:56 PM EST Oxygen Saturation 95% 02/23/2019 3:56 PM EST Inhaled Oxygen Concentration - - Weight 120.2 kg (265 lb) 02/20/2019 8:43 AM EST Height 172.7 cm (5' 8 ) 02/20/2019 8:43 AM EST Body Mass Index 40.29 02/20/2019 8:43 AM EST Plan of Treatment Health Maintenance Due Date Last Done Comments Hepatitis B Vaccines (1 of 3 - 3-dose series) 1979 Hepatitis C Screening 1979 COVID-19 Vaccine (#1) 02/18/1980 Pneumococcal Vaccine (1 of 2 - PCV) 08/18/1985 Depression Screening 1991 BMI Counseling 08/18/1997 Preventative Health Evaluation 08/18/1997 Tobacco Cessation Counseling 08/18/1997 DTap / Tdap / Td (1 - Tdap) 08/18/1998 Influenza Vaccine (#1) 2023 01/16/2017 RSV Ped < 20 months Aged Out No longe r eligible based on patient's age to complete this topic Medical Devices Implanted Type Area Desk Officer Device Identifier Shelf Expiration Date Model / Serial / Lot Endobutton Fixation Button 4mm X 12mm Implanted:Qty: 1 on 02/23/2019 by Say Monroy MD at [facility] Right: Elbow 09/26/2023 [id number] / / [id number] Albert Manriquez Personal/Family Self 1980 [address] [place] [id number] Albert Manriquez Personal/Family Self [address] [place] [phone] Albert Manriquez Personal/Family Self [address] [place] [phone]
--- OUTSIDE RECORDS SUMMARY | 2024-04-29 10:06 | XMS_ITS | Clinical Summary ---
Author Organization [address] Address [address] [place] [id number] Care Team Providers Care Chief Technologist Name Role Phone No, Pcp (Do Not Change Name) Primary Care Provid er Unavailable Allergies No known active allergies Medications DIPHENHYDRAMINE HCL (MAGIC MOUTHWASH) Swish and swallow 15 mLs every 4 (four) hours as needed. 200 mL 0 11/06/2013 Active Active Problems No known active problems Social History Tobacco Use Types Packs/Day Years Used Date Smoking Tobacco: Former Alcohol Use Standard Drinks/Week Comments No 0 (1 standard drink = 0.6 oz pur e alcohol) Sex and Gender Information Value Date Recorded Sex Assigned at Not on file Legal Sex Male 9:40 AM EST Gender Identity Not on file Sexual Orientation Not on file Last Filed Vital Signs Vital Sign Reading Time Taken Comments Blood Pressure 122/71 07/08/2017 11:53 PM EDT Pulse 67 07/08/2017 11:53 PM EDT Temperature 36.9 ??C (98.4 ??F) 07/08/2017 11:53 PM E DT Respiratory Rate 17 07/08/2017 11:53 PM EDT Oxygen Saturation 96% 07/08/2017 11:53 PM EDT Inhaled Oxygen Concentration - - Weight 124.7 kg (275 lb) 07/08/2017 6:39 PM EDT Height 172.7 cm (5' 8 ) 09/24/2014 1:08 PM EDT Body Mass Index 41.81 09/24/2014 1:08 PM EDT Plan of Treatment Health Maintenance Due Date Last Done Comments HIV screening 08/18/1992 Hepatitis C screening 08/18/1997 Tetanus adult (Td q 10,TDAP once) 1999 Lipid disorder screening 2019 10/01/2011 Influenza vaccine 10/17/2023 Covid-19 vaccine series ( - 2023-25 season) 2023 RSV Discussion (1 - 1-dose 7 5+ series) 08/18/2054 Meningococcal Vaccine Aged Out No haily adria eligible based on patient's age to complete this topic Pneumococcal Vaccine Aged Out No long er eligible based on patient's age to complete this topic Procedures Procedure Name Priority Date/Time Associated Diagnosis Comments LIPID PANEL Routine 10/01/2011 12:34 PM EDT from Last 3 Months or Most Recently Relevant to Health Maintenance Results * (ABNORMAL) Lipid panel (10/01/2011 12:34 PM EDT) Cholesterol 235(H) 0 - 199 mg/dL [facility] Triglycerides 231(H) 0 - 150 mg/dL [facility] HDL 31(L) >=41 mg/dL [facility] LDL Cholesterol 157(H) 0 - 99 [facility] CHD Risk 7.5(H) <=4.5 [facility] BLOOD SPECIMEN / Unknown 10/01/2011 12:34 PM EDT us Jaime Fishman MD LAB BLOOD ORDERABLES Final [facility] t [facility] [address] [place], [place] [id number] from Last 3 Months or Most Recently Relevant to Health Maintenance Insurance BS [facility] Care Teams Chief Technologist Relationship Specialty Start Date End Date No, Pcp (Do Not Change Name) PCP - General 07/08/17
[2024-04-29 11:24] LABS: Appearance Urine Clear; Color Urine Yellow; Glucose Urine UA Negative (Negative); Leukocyte Esterase Urine Negative (Negative); Nitrite Urine Negative (Negative); Specific Gravity - Urine 1.015 (1.005-1.025); Urine Blood Negative (Negative); Urine Ketones Negative (Negative); Urine Protein Negative (Neg-Trace)
[2024-04-29 11:25] LABS: MANUAL DIFF FLAG NO
[2024-04-29 11:32] LABS: Basophils Absolute Auto 0.1 X10*3/uL (0.0-0.2); Basophils Percent Auto 0.9 % (0-2); Eosinophils Absolute Auto 0.2 X10*3/uL (0.0-0.4); Eosinophils Percent Auto 2.8 % (0-4); Hematocrit 43.5 % (42.0-52.0); Hemoglobin 15.2 g/dl (14.0-18.0); Imm Gran Abs Auto 0.02 X10*3/uL (0.00-0.03); Imm Gran Pct Auto 0.4 % (0.0-0.4); Lymphocytes Absolute Auto 1.5 X10*3/uL (1.2-4.9); Lymphocytes Percent Auto 26.5 % (20-40); Mean Corpuscular HGB Conc 34.9 g/dl (31.0-36.0); Mean Corpuscular Hemoglobin 29.9 pg (27.0-33.0); Mean Corpuscular Volume 85.5 fL (80.0-98.0); Mean Platelet Volume 9.3 fL (9.4-12.4); Monocytes Absolute Auto 0.6 X10*3/uL (0.1-1.2); Monocytes Percent Auto 10.9 % (2-11); Neutrophils Absolute Auto 3.3 x10*3/uL (2.0-8.3); Neutrophils Percent Auto 58.5 % (45-73); Platelet Count 275 X10*3/uL (160-400); Red Blood Count 5.09 X10*6/uL (4.60-5.80); Red Cell Distribution Width 11.9 % (11.0-16.0); White Blood Count 5.7 X10*3/uL (4.8-10.8)
[2024-04-29 11:56] LABS: Alanine Aminotransferase 92 U/L (0-40); Albumin Level 4.5 g/dL (3.5-5.0); Alkaline Phosphatase 56 U/L (39-117); Anion Gap 10 (12-20); Aspartate Amino Transferase 56 U/L (5-37); Bilirubin Total 0.6 mg/dL (0.0-1.0); Blood Urea Nitrogen 14 mg/dL (9-16); Calcium 9.2 mg/dL (8.4-10.2); Carbon Dioxide 25 mmol/L (22-29); Chloride 107 mmol/L (96-108); Cholesterol 230 mg/dL (<200); Estimated Glomerular Filt Rate > 60; Glucose Fasting 89 mg/dL (60-99); HDL Cholesterol 30 mg/dL (>40); LDL Cholesterol Calculated 152 mg/dL (<100); Potassium 3.9 mmol/L (3.3-5.1); Sodium 138 mmol/L (135-145); Total Protein 8.1 g/dL (6.5-8.0); Triglycerides 241 mg/dL (<150)
[2024-04-29 12:01] LABS: Estimated Average Glucose 111 mg/dL; Hemoglobin A1C 144.5195 umol/L; Hemoglobin A1c % 5.5 % (<6.0); Total Hemoglobin (HGBA1C) 3961.3162 umol/L
[2024-04-29 12:19] LABS: Prostate Specific Antigen Scr 0.59 ng/mL (<0.05-4.0)
[2024-04-29 12:20] LABS: TSH reflex Free T4 1.67 uIU/mL (0.32-4.0)
== END 2024-04-29 09:10 | disposition home or self-care (01) ==
LOC: HO.WFDLDS 09:09
PROVIDERS: Visit Provider Physician Assistant
DX: R76.8 Other specified abnormal immunological findings in serum (principal); E66.01 Morbid (severe) obesity due to excess calories; E78.5 Hyperlipidemia, unspecified; R73.01 Impaired fasting glucose; Z13.220 Encounter for screening for lipoid disorders; Z01.89 Encounter for other specified special examinations; Z12.5 Encounter for screening for malignant neoplasm of prostate
CPT/HCPCS: 36415; 80053; 80061; 81003; 83036; 84153; 84443; 85025